=== PATIENT | male | born 1970 | race African-American/Black ===

== ENCOUNTER 2018-01-02 11:13 | Inpatient (IN) | payer OTHER ==
[2018-01-02 12:56] VITALS: BMI 25.9
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
[2018-01-02] MEDS ORDERED: P-EPHED 60MG/TRIPROLIDI 2.5MG TABLET PO PRN (13:03)
[2018-01-02] MEDS ORDERED: MENTHOL/PHENOL 1 EACH UD MM PRN (13:03)
[2018-01-02] MEDS ORDERED: chlordiazePOXIDE HCL 25 MG CAPSULE PO PRN (13:03)
[2018-01-02] MEDS ORDERED: MAGNESIUM CITRATE 300 ML BOTTLE PO PRN (13:03)
[2018-01-02] MEDS ORDERED: MAG HYDROX/AL HYDROX/SIMETH 30 ML UNIT-DOSE CUP PO PRN (13:03)
[2018-01-02] MEDS ORDERED: MAGNESIUM HYDROX 2400MG/30ML ORAL SUSPENSION 30 ML CUP PO PRN (13:03)
[2018-01-02] MEDS ORDERED: guaiFENesin/D-METHORPHAN HB 10 ML UNIT-DOSE CUPS PO PRN (13:03)
[2018-01-02] MEDS ORDERED: ACETAMINOPHEN 325 MG TABLET (FP) PO PRN (13:03)
[2018-01-02] MEDS ORDERED: IBUPROFEN 400 MG TABLET (FP) PO PRN (13:03)
[2018-01-02] MEDS: chlordiazePOXIDE HCL 25 MG CAPSULE PO SCH ×2 (16:17→22:07)
[2018-01-02 18:22] LABS: URINE APPEARANCE CLEAR; URINE BILIRUBIN NEGATIVE (<2.0 mg/dL); URINE COLOR COLORLESS; URINE GLUCOSE (UA) NEGATIVE (NEGATIVE); URINE KETONE NEGATIVE (NEGATIVE); URINE LEUK ESTERASE NEGATIVE (NEGATIVE); URINE NITRITE NEGATIVE (NEGATIVE); URINE PROTEIN NEGATIVE (NEGATIVE); URINE UROBILINOGEN NEGATIVE mg/dL (0.2-1.0)
[2018-01-02] MEDS: THIAMINE HCL 100 MG TABLET (FP) PO SCH (22:07)
[2018-01-02] MEDS: MELATONIN 5 MG TABLETS PO PRN (22:07)
[2018-01-03] MEDS: chlordiazePOXIDE HCL 25 MG CAPSULE PO SCH ×4 (06:56→22:06)
[2018-01-03] MEDS: PRENATAL VITAMINS W/ FOLIC ACID TABLET (FP) PO SCH (10:09)
[2018-01-03 10:57] LABS: HEMATOCRIT 39.8 % (35.4-49); HEMOGLOBIN 12.7 GM/dL (11.7-16.9); MCH 28.9 pg (25.7-33.7); MCHC 32.1 g/dl (32.0-35.9); MEAN CELL VOLUME 90.3 fl (80-96); MEAN PLT VOLUME 9.1 fl (7.5-11.1); PLATELET COUNT 349 K/MM3 (134-434); RBC 4.41 M/mm3 (4.00-5.60); RDW 12.6 % (11.9-15.9); WHITE BLOOD COUNT 4.1 K/mm3 (4.0-10.0)
--- NOTE | 2018-01-03 10:58 | PN ---
S CIWA - CIWA Score Nausea/Vomitin-No Nausea/No Vomiting Muscle Tremors: None Anxiety: 4-Mod. Anxious/Guarded Agitation: 5 Paroxysmal Sweats: 1-Minimal Palms Moist Orientation: 0-Oriented Tacttile Disturbances: 0-None Auditory Disturbances: 0-None Visual Disturbances: 0-None Headache: 0-None Present CIWA-Ar Total Score: 10 BHS Progress Note (SOAP) Subjective: PATIENT C/O ANXIETY, RESTLESSNESS AND IRRITABILITY. Objective: 01/03/18 10:56 Vital Signs Temperature 97 F L 01/03/18 09:36 Pulse Rate 81 01/03/18 09:36 Respiratory Rate 18 01/03/18 09:36 Blood Pressure 117/73 01/03/18 09:36 O2 Sat by Pulse Oximetry (%) Laboratory Tests 01/02/18 17:55 Urine Color Colorless Urine Appearance Clear Urine pH 7.0 Ur Specific [place] 1.004 L Urine Protein Negative Urine Glucose (UA) Negative Urine Ketones Negative Urine Blood Negative Urine Nitrite Negative Urine Bilirubin Negative Urine Urobilinogen Negative Ur Leukocyte Esterase Negative SKIN WARM AND MOISTURE OF HANDS CAR S1S2 RESP CTA BL EXT FULL ROM ALERT AND ORIENTED X 3 IRRITABLE AND PACING IN HALLWAY Assessment: 01/03/18 10:57 WITHDRAWAL SYNDROME Plan: CONTINUE DETOX ENCOURAGE ORAL FLUIDS CONTINUE TO MONITOR CLINICALLY
[2018-01-03 11:15] LABS: ALK PHOS 100 U/L (45-117); ANION GAP 10 MMOL/L (8-16); BILIRUBIN,TOTAL 0.3 mg/dL (0.2-1); BLOOD UREA NITROGEN 9 mg/dL (7-18); CALCIUM 9.1 mg/dL (8.5-10.1); CHLORIDE 106 mmol/L (98-107); CO2 25 mmol/L (21-32); CREATININE 0.9 mg/dL (0.55-1.3); GLUCOSE,RANDOM 88 mg/dL (74-106); POTASSIUM 4.5 mmol/L (3.5-5.1); SGOT/AST 24 U/L (15-37); SGPT/ALT 21 U/L (13-61); SODIUM 141 mmol/L (136-145); TOT PROT 7.7 g/dl (6.4-8.2)
--- NOTE | 2018-01-03 18:00 | PN ---
BHS Progress Note Note: Vistaril ordered prn for pt's increasing anxiety
[2018-01-03] MEDS: hydrOXYzine PAMOATE 25 MG CAPSULE (FP) PO PRN (18:22)
[2018-01-03] MEDS: MELATONIN 5 MG TABLETS PO PRN (22:06)
[2018-01-03] MEDS: THIAMINE HCL 100 MG TABLET (FP) PO SCH (22:06)
[2018-01-04] MEDS: chlordiazePOXIDE HCL 25 MG CAPSULE PO SCH ×2 (05:41→10:19)
[2018-01-04] MEDS: PRENATAL VITAMINS W/ FOLIC ACID TABLET (FP) PO SCH (10:19)
[2018-01-04] MEDS: hydrOXYzine PAMOATE 25 MG CAPSULE (FP) PO PRN ×2 (11:05→17:36)
--- NOTE | 2018-01-04 12:37 | PN ---
[facility] CIWA - CIWA Score Nausea/Vomitin-Mild Nausea/No Vomiting Muscle Tremors: 3 Anxiety: 3 Agitation: 3 Paroxysmal Sweats: 3 Orientation: 0-Oriented Tacttile Disturbances: 0-None Auditory Disturbances: 0-None Visual Disturbances: 0-None Headache: 1-Very Mild CIWA-Ar Total Score: 14 [facility] Progress Note (SOAP) Subjective: Tremor, agitation, restless, anxious Objective: 01/04/18 12:35 Last Vital Signs Temp Pulse Resp BP Pulse Ox 96.4 F L 82 18 122/71 01/04/18 09:22 01/04/18 09:22 01/04/18 09:22 01/04/18 09:22 Laboratory Tests 01/02/18 01/03/18 01/03/18 17:55 05:40 05:40 WBC 4.1 RBC 4.41 Hgb 12.7 Hct 39.8 MCV 90.3 MCH 28.9 MCHC 32.1 RDW 12.6 Plt Count 349 MPV 9.1 Sodium 141 Potassium 4.5 Chloride 106 Carbon Dioxide 25 Anion Gap 10 BUN 9 Creatinine 0.9 Creat Clearance w eGFR > 60 Random Glucose 88 Calcium 9.1 Total Bilirubin 0.3 AST 24 ALT 21 Alkaline Phosphatase 100 Total Protein 7.7 Albumin 4.0 Urine Color Colorless Urine Appearance Clear Urine pH 7.0 Ur Specific [place] 1.004 L Urine Protein Negative Urine Glucose (UA) Negative Urine Ketones Negative Urine Blood Negative Urine Nitrite Negative Urine Bilirubin Negative Urine Urobilinogen Negative Ur Leukocyte Esterase Negative RPR Titer 01/03/18 05:40 WBC RBC Hgb Hct MCV MCH MCHC RDW Plt Count MPV Sodium Potassium Chloride Carbon Dioxide Anion Gap BUN Creatinine Creat Clearance w eGFR Random Glucose Calcium Total Bilirubin AST ALT Alkaline Phosphatase Total Protein Albumin Urine Color Urine Appearance Urine pH Ur Specific [place] Urine Protein Urine Glucose (UA) Urine Ketones Urine Blood Urine Nitrite Urine Bilirubin Urine Urobilinogen Ur Leukocyte Esterase RPR Titer Nonreactive Labs reviewed Assessment: 01/04/18 12:36 Withdrawal symptoms Plan: Continue detox Encouraged PO water intake
[2018-01-04] MEDS: chlordiazePOXIDE 5 MG CAPSULE PO SCH ×2 (17:33→22:06)
[2018-01-04] MEDS: THIAMINE HCL 100 MG TABLET (FP) PO SCH (22:06)
[2018-01-04] MEDS: MELATONIN 5 MG TABLETS PO PRN (22:07)
[2018-01-05] MEDS: chlordiazePOXIDE 5 MG CAPSULE PO SCH ×2 (05:31→10:17)
[2018-01-05] MEDS: hydrOXYzine PAMOATE 25 MG CAPSULE (FP) PO PRN (08:47)
--- NOTE | 2018-01-05 10:15 | PN ---
BHS Progress Note (SOAP) Subjective: Shakes Anxious Objective: 01/05/18 10:13 A & O x 3 skin flushed Sitting calmly in bed No distress noted Vital Signs Temperature 99.3 F 01/05/18 09:56 Pulse Rate 93 H 01/05/18 09:56 Respiratory Rate 18 01/05/18 09:56 Blood Pressure 105/71 01/05/18 09:56 O2 Sat by Pulse Oximetry (%) Assessment: 01/05/18 10:13 Withdrawal sx Plan: Continue detox continue hydration
[2018-01-05] MEDS: PRENATAL VITAMINS W/ FOLIC ACID TABLET (FP) PO SCH (10:17)
[2018-01-05] MEDS: chlordiazePOXIDE HCL 10 MG CAPSULE PO SCH ×2 (17:21→22:05)
[2018-01-05] MEDS: MELATONIN 5 MG TABLETS PO PRN (22:05)
[2018-01-05] MEDS: THIAMINE HCL 100 MG TABLET (FP) PO SCH (22:05)
[2018-01-06] MEDS: chlordiazePOXIDE HCL 10 MG CAPSULE PO SCH ×2 (05:09→10:27)
[2018-01-06 09:21] VITALS: BP 131/86; PULSE 97; TEMP 99
[2018-01-06] MEDS: PRENATAL VITAMINS W/ FOLIC ACID TABLET (FP) PO SCH (10:27)
--- NOTE | 2018-01-06 10:50 | DS ---
[facility] Detox Discharge Summary Admission Date: 01/02/18 Discharge Date: 01/06/18 - History Present History: Alcohol Dependence - Physical Exam Results Vital Signs: Vital Signs Temperature 99.0 F 01/06/18 09:20 Pulse Rate 97 H 01/06/18 09:20 Respiratory Rate 18 01/06/18 09:20 Blood Pressure 131/86 01/06/18 09:20 O2 Sat by Pulse Oximetry (%) Pertinent Admission Physical Exam Findings: PATIENT TOLERATED DETOX REGIMEN WITHOUT ADVERSE EFFECTS. PATIENT MEDICALLY STABLE. DENIES SI/HI. IN NAD. ALERT AND ORIENTED X 3. SKIN WARM AND DRY. AMB AD MADHAV. EXT FULL ROM. PATIENT ACCEPTED REHAB REFERRAL TO [facility]. PATIENT ENCOURAGED TO COMPLETE REHAB TO PREVENT RELAPSE. D/C INSTRUCTIONS PROVIDED TO PATIENT BY STAFF. - Treatment Hospital Course: Detox Protocol Followed, Detoxed Safely, Responded well, Discharged Condition Good, Rehab Referral Accepted Patient has Accepted a Rehab Referral to: [facility] - Medication Discharge Medications: Ambulatory Orders NK [No Known Home Medication] 05/18/14 - Diagnosis (1) Withdrawal syndrome Current Visit: Yes Status: Resolved - AMA Did Patient Leave Against Medical Advice: No
== END 2018-01-06 12:57 | disposition other institution (70) | DRG 774 ==
LOC: YASAS 11:13 → Y3N 14:23
PROC: HZ2ZZZZ Detoxification Services for Substance Abuse Treatment (ICD-10-PCS; principal; 2018-01-02)
DX: F10.230 Alcohol dependence with withdrawal, uncomplicated (principal); F14.10 Cocaine abuse, uncomplicated; F17.210 Nicotine dependence, cigarettes, uncomplicated; R00.0 Tachycardia, unspecified; Z86.69 Personal history of other diseases of the nervous system and sense organs
CPT/HCPCS: 36415; 80053; 81003; 85027; 86593

== ENCOUNTER 2018-01-06 13:01 | Inpatient (IN) | payer OTHER ==
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
[2018-01-06] MEDS ORDERED: MAGNESIUM CITRATE 300 ML BOTTLE PO PRN (15:32)
[2018-01-06] MEDS ORDERED: guaiFENesin/D-METHORPHAN HB 10 ML UNIT-DOSE CUPS PO PRN (15:32)
[2018-01-06] MEDS ORDERED: IBUPROFEN 400 MG TABLET (FP) PO PRN (15:32)
[2018-01-06] MEDS ORDERED: NICOTINE POLACRILEX 2 MG GUM BUC PRN (15:32)
[2018-01-06] MEDS ORDERED: MAG HYDROX/AL HYDROX/SIMETH 30 ML UNIT-DOSE CUP PO PRN (15:32)
[2018-01-06] MEDS ORDERED: LOPERAMIDE HCL 2 MG CAPSULE PO PRN (15:32)
[2018-01-06] MEDS ORDERED: MAGNESIUM HYDROX 2400MG/30ML ORAL SUSPENSION 30 ML CUP PO PRN (15:32)
[2018-01-06] MEDS ORDERED: P-EPHED 60MG/TRIPROLIDI 2.5MG TABLET PO PRN (15:32)
[2018-01-06] MEDS ORDERED: MENTHOL/PHENOL 1 EACH UD MM PRN (15:32)
--- NOTE | 2018-01-06 15:32 | HP ---
[facility] Rehab Assess/Revision - Admission History [facility] Date of Admission to Rehab: 01/06/18 - Findings Detox History & Physical reviewed: Yes Concur with findings: Yes Inpatient Rehab Admission - Initial Determination Are CD services needed?: Yes Free of communicable disease: Yes Not in need of hospitalization: Yes - Rehab Admission Criteria Patient is meeting Inpatient Rehab admission criteria:: Yes
[2018-01-06] MEDS: MELATONIN 5 MG TABLETS PO PRN (21:25)
[2018-01-06] MEDS: THIAMINE HCL 100 MG TABLET (FP) PO SCH (21:25)
[2018-01-07] MEDS: PRENATAL VITAMINS W/ FOLIC ACID TABLET (FP) PO SCH (10:16)
[2018-01-07] MEDS: NICOTINE 14 MG/24 HOURS TOPICAL PATCH TD SCH (10:16)
[2018-01-07] MEDS: ACETAMINOPHEN 325 MG TABLET (FP) PO PRN (14:49)
[2018-01-07] MEDS: THIAMINE HCL 100 MG TABLET (FP) PO SCH (21:36)
[2018-01-07] MEDS: MELATONIN 5 MG TABLETS PO PRN (21:37)
[2018-01-08] MEDS: PRENATAL VITAMINS W/ FOLIC ACID TABLET (FP) PO SCH (10:04)
[2018-01-08] MEDS: NICOTINE 14 MG/24 HOURS TOPICAL PATCH TD SCH (10:04)
[2018-01-08] MEDS: ACETAMINOPHEN 325 MG TABLET (FP) PO PRN (21:37)
[2018-01-08] MEDS: THIAMINE HCL 100 MG TABLET (FP) PO SCH (21:37)
[2018-01-08] MEDS: MELATONIN 5 MG TABLETS PO PRN (21:37)
--- NOTE | 2018-01-09 06:49 | PN ---
Psychiatric Progress Note Vital Signs: Vital Signs Period Temp Pulse Resp BP Sys/Herrera Pulse Ox Last 24 Hr 98.1 F 77 18-18 117/87 Date of Session: 01/09/18 Chief Complaint:: Discharge Note HPI: Patient addressing Alcohol Dependence, Cocaine Abuse comorbid with Nicotine Dependence ROS: Alcohol related Seizure, H/O Anemia Current Medications: Active Medications Generic Name Dose Route Start Last Admin Trade Name Freq PRN Reason Stop Dose Admin Acetaminophen 650 mg 01/06/18 15:32 01/08/18 21:37 Tylenol - PO 650 mg Q4H PRN Administration FEVER Al Hydroxide/Mg Hydroxide 30 ml 01/06/18 15:32 Mylanta Oral Suspension - PO Q6H PRN DYSPEPSIA Eucalyptus/Menthol/Phenol/Sorbitol 1 each 01/06/18 15:32 Cepastat Lozenge - MM Q4H PRN SORE THROAT Guaifenesin 10 ml 01/06/18 15:32 Robitussin Dm - PO Q6H PRN COUGH Ibuprofen 400 mg 01/06/18 15:32 01/08/18 10:03 Motrin - PO 400 mg Q6H PRN Administration Pain Level 4-6 Loperamide HCl 4 mg 01/06/18 15:32 Imodium - PO Q6H PRN DIARRHEA Magnesium Citrate 300 ml 01/06/18 15:32 Citroma - PO Q48H PRN CONSTIPATION Magnesium Hydroxide 30 ml 01/06/18 15:32 Milk Of Magnesia - PO DAILY PRN CONSTIPATION Melatonin 5 mg 01/06/18 22:00 01/08/18 21:37 Melatonin PO 5 mg HS PRN Administration INSOMNIA Nicotine 14 mg 01/07/18 10:00 01/08/18 10:04 Nicoderm Patch - TD Not Given DAILY MARYA Nicotine Polacrilex 2 mg 01/06/18 15:32 Nicorette Gum - BUC Q2H PRN NICOTINE REPLACEMENT RX Multivit/Folic Acid/Iron 1 tab 01/07/18 10:00 01/08/18 10:04 Vitamins (Sjr) - PO 1 tab DAILY MARYA Administration Pseudoephedrine/Triprolidine 1 combo 01/06/18 15:32 Actifed - PO TID PRN NASAL CONGESTION Thiamine HCl 100 mg 01/06/18 22:00 01/08/18 21:37 Vitamin B1 - PO 100 mg HS MARYA Administration Current Side Effect: No Lab tests ordered: Yes Lab tests reviewed: Yes Provider note:: Patient has complete this program today. He has met his treatment goals and will continue to address his issues in half-way residential treatment at [facility]. Told life underwriter that from his participation in this program, he has learned to identify his triggers and better addressed them. He is stable for discharge today Total face to face time:: 35 Mental Status Exam - Mental Status Exam Alert and Oriented to: Time, Place, Person Cognitive Function: Fair Patient Appearance: Well Groomed Mood: Hopeful, Euthymic Affect: Appropriate Patient Behavior: Cooperative Speech Pattern: Clear Voice Loudness: Normal, Limited Variation Thought Process: Goal Oriented Thought Disorder: Not Present Hallucinations: Denies Suicidal Ideation: Denies Homicidal Ideation: Denies Insight/Judgement: Fair Sleep: Fair Appetite: Good Muscle strength/Tone: Normal Gait/Station: Normal Psychiatric Treatment Plan - Problem List (1) Alcohol dependence Current Visit: No Comment: . (2) Cocaine use disorder, mild, abuse Current Visit: No (3) Nicotine dependence Current Visit: No Comment: . (4) Alcohol related seizure Current Visit: No (5) History of anemia Current Visit: Yes Initial treatment plan: Patient is discharged today and referred to [facility] for half-way residential treatment
[2018-01-09 06:51] VITALS: BP 121/77; PULSE 89; TEMP 97.9
== END 2018-01-09 08:38 | disposition home or self-care (01) | DRG 772 ==
LOC: YASAS 13:01 → Y3W 13:02
PROVIDERS: ADMIT Psychiatry & Neurology Psychiatry; ATTEND Psychiatry & Neurology Psychiatry
PROC: HZ42ZZZ Group Counseling for Substance Abuse Treatment, Cognitive-Behavioral (ICD-10-PCS; principal; 2018-01-06)
DX: F10.20 Alcohol dependence, uncomplicated (principal); F14.10 Cocaine abuse, uncomplicated; F17.210 Nicotine dependence, cigarettes, uncomplicated; R56.9 Unspecified convulsions; Z86.69 Personal history of other diseases of the nervous system and sense organs; Z86.2 Personal history of diseases of the blood and blood-forming organs and certain disorders involving the immune mechanism

== ENCOUNTER 2018-07-03 14:33 | Inpatient (IN) | payer OTHER ==
[2018-07-03 18:01] VITALS: BMI 25.1
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
[2018-07-03] MEDS ORDERED: ACETAMINOPHEN 325 MG TABLET (FP) PO PRN ×2 (20:27)
[2018-07-03] MEDS ORDERED: MAGNESIUM CITRATE 300 ML BOTTLE PO PRN (20:27)
[2018-07-03] MEDS ORDERED: MAG HYDROX/AL HYDROX/SIMETH 30 ML UNIT-DOSE CUP PO PRN (20:27)
[2018-07-03] MEDS ORDERED: IBUPROFEN 400 MG TABLET (FP) PO PRN (20:27)
[2018-07-03] MEDS ORDERED: MAGNESIUM HYDROX 2400MG/30ML ORAL SUSPENSION 30 ML CUP PO PRN (20:27)
[2018-07-03] MEDS ORDERED: chlordiazePOXIDE HCL 10 MG CAPSULE PO PRN (20:27)
[2018-07-03] MEDS ORDERED: MENTHOL/PHENOL 1 EACH UD MM PRN (20:27)
[2018-07-03] MEDS ORDERED: hydrOXYzine PAMOATE 50 MG CAPSULE (FP) PO PRN (20:27)
[2018-07-03] MEDS ORDERED: METHOCARBAMOL 500 MG TABLET PO PRN (20:27)
[2018-07-03] MEDS ORDERED: chlordiazePOXIDE HCL 25 MG CAPSULE PO ONE (21:00)
[2018-07-03] MEDS: THIAMINE HCL 100 MG TABLET (FP) PO SCH (21:24)
[2018-07-03] MEDS: MELATONIN 5 MG TABLETS PO PRN (21:25)
[2018-07-03] MEDS: chlordiazePOXIDE HCL 25 MG CAPSULE PO SCH (21:27)
[2018-07-04] MEDS: chlordiazePOXIDE HCL 25 MG CAPSULE PO SCH ×2 (05:27→13:08)
[2018-07-04] MEDS ORDERED: NAPROXEN 500 MG TABLET (FP) PO SCH (10:00)
[2018-07-04] MEDS: PRENATAL VITAMINS W/ FOLIC ACID TABLET (FP) PO SCH (10:04)
[2018-07-04 10:14] LABS: HEMATOCRIT 39.6 % (35.4-49); HEMOGLOBIN 13.1 GM/dL (11.7-16.9); MCH 29.6 pg (25.7-33.7); MCHC 33.2 g/dl (32.0-35.9); MEAN CELL VOLUME 89.2 fl (80-96); MEAN PLT VOLUME 8.2 fl (7.5-11.1); PLATELET COUNT 294 K/MM3 (134-434); RBC 4.44 M/mm3 (4.00-5.60); RDW 12.6 % (11.9-15.9); WHITE BLOOD COUNT 2.9 K/mm3 (4.0-10.0)
[2018-07-04 10:22] LABS: ALBUMIN 3.8 g/dl (3.4-5.0); ALK PHOS 118 U/L (45-117); ANION GAP 7 MMOL/L (8-16); BILIRUBIN,TOTAL 0.5 mg/dL (0.2-1); BLOOD UREA NITROGEN 7 mg/dL (7-18); CALCIUM 9.2 mg/dL (8.5-10.1); CHLORIDE 103 mmol/L (98-107); CO2 28 mmol/L (21-32); CREATININE 0.9 mg/dL (0.55-1.3); GLUCOSE,RANDOM 95 mg/dL (74-106); POTASSIUM 3.9 mmol/L (3.5-5.1); SGOT/AST 39 U/L (15-37); SGPT/ALT 32 U/L (13-61); SODIUM 138 mmol/L (136-145); TOT PROT 7.5 g/dl (6.4-8.2)
[2018-07-04] MEDS: BISMUTH SUBSALICYLATE 524 MG/30 ML UD PO PRN ×2 (13:09→17:12)
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
--- NOTE | 2018-07-04 14:28 | EKG ---
Test Reason : Blood Pressure : / mmHG Vent. Rate : 080 BPM Atrial Rate : 080 BPM P-R Int : 162 ms QRS Dur : 094 ms QT Int : 390 ms P-R-T Axes : 076 061 067 degrees QTc Int : 449 ms NORMAL SINUS RHYTHM NORMAL ECG NO PREVIOUS ECGS AVAILABLE Confirmed by MD RAUL, JOE ([id number]) on 07/04/2018 2:28:24 PM Referred By: Confirmed By:JOE CARTER MD
[2018-07-04] MEDS ORDERED: ONDANSETRON *ODT* 4 MG TABLET SL PRN (14:43)
--- NOTE | 2018-07-04 17:26 | PN ---
[facility] CIWA - CIWA Score Nausea/Vomitin-No Nausea/No Vomiting Muscle Tremors: 3 Anxiety: 2 Agitation: 0-Normal Activity Paroxysmal Sweats: 3 Orientation: 0-Oriented Tacttile Disturbances: 2-Mild Itch/Numbness/Burn Auditory Disturbances: 2-Mild Harshness/Frighten Visual Disturbances: 0-None Headache: 0-None Present CIWA-Ar Total Score: 12 S Progress Note (SOAP) Subjective: Sweating, Tremors, Interrupted Sleep. Objective: PATIENT A & O X 3, OBSERVED AMBULATING ON UNIT UNASSISTED. IN NO ACUTE DISTRESS. 07/04/18 17:26 Vital Signs Temperature 98.1 F 07/04/18 13:26 Pulse Rate 78 07/04/18 13:26 Respiratory Rate 18 07/04/18 13:26 Blood Pressure 143/87 07/04/18 13:26 O2 Sat by Pulse Oximetry (%) Laboratory Tests 07/04/18 07/04/18 07:48 07:48 WBC 2.9 L RBC 4.44 Hgb 13.1 Hct 39.6 MCV 89.2 MCH 29.6 MCHC 33.2 RDW 12.6 Plt Count 294 MPV 8.2 Sodium 138 Potassium 3.9 Chloride 103 Carbon Dioxide 28 Anion Gap 7 L BUN 7 Creatinine 0.9 Creat Clearance w eGFR 90.06 Random Glucose 95 Calcium 9.2 Total Bilirubin 0.5 AST 39 H ALT 32 Alkaline Phosphatase 118 H Total Protein 7.5 Albumin 3.8 LABS NOTED. PATIENT HAS HAD LOW WBC LEVELS ON PREVIOUS ADMISSIONS. RPR RESULT PENDING. 07/04/18 17:27 Assessment: 07/04/18 17:27 WITHDRAWAL SYMPTOMS. LEUKOPENIA. Plan: CONTINUE DETOX. PATIENT DENIES KNOWN HISTORY OF HTN - CONTINUE TO MONITOR BP.
[2018-07-04] MEDS: chlordiazePOXIDE 5 MG CAPSULE PO SCH (22:37)
[2018-07-04] MEDS: THIAMINE HCL 100 MG TABLET (FP) PO SCH (22:37)
[2018-07-04] MEDS: MELATONIN 5 MG TABLETS PO PRN (22:38)
[2018-07-05] MEDS: chlordiazePOXIDE 5 MG CAPSULE PO SCH ×2 (06:00→13:03)
[2018-07-05] MEDS: PRENATAL VITAMINS W/ FOLIC ACID TABLET (FP) PO SCH (10:21)
[2018-07-05] MEDS: BISMUTH SUBSALICYLATE 524 MG/30 ML UD PO PRN ×2 (10:22→12:11)
--- NOTE | 2018-07-05 12:09 | PN ---
[facility] CIWA - CIWA Score Nausea/Vomitin-Mild Nausea/No Vomiting Muscle Tremors: 1-None Visible, but [place]ady Anxiety: 2 Agitation: 1-Slight > Activity Paroxysmal Sweats: 1-Minimal Palms Moist Orientation: 1-Uncertain about Date Tacttile Disturbances: 1-Very Mild Itch/Numbness Auditory Disturbances: 0-None Visual Disturbances: 0-None Headache: 1-Very Mild CIWA-Ar Total Score: 9 S Progress Note (SOAP) Subjective: feeling better social with peers in day room Objective: 07/05/18 12:11 Vital Signs Temperature 98.2 F 07/05/18 09:23 Pulse Rate 86 07/05/18 09:23 Respiratory Rate 18 07/05/18 09:23 Blood Pressure 119/76 07/05/18 09:23 O2 Sat by Pulse Oximetry (%) Laboratory Last Values WBC 2.9 K/mm3 (4.0-10.0) L 07/04/18 07:48 RBC 4.44 M/mm3 (4.00-5.60) 07/04/18 07:48 Hgb 13.1 GM/dL (11.7-16.9) 07/04/18 07:48 Hct 39.6 % (35.4-49) 07/04/18 07:48 MCV 89.2 fl (80-96) 07/04/18 07:48 MCH 29.6 pg (25.7-33.7) 07/04/18 07:48 MCHC 33.2 g/dl (32.0-35.9) 07/04/18 07:48 RDW 12.6 % (11.9-15.9) 07/04/18 07:48 Plt Count 294 K/MM3 (134-434) 07/04/18 07:48 MPV 8.2 fl (7.5-11.1) 07/04/18 07:48 Sodium 138 mmol/L (136-145) 07/04/18 07:48 Potassium 3.9 mmol/L (3.5-5.1) 07/04/18 07:48 Chloride 103 mmol/L (98-107) 07/04/18 07:48 Carbon Dioxide 28 mmol/L (21-32) 07/04/18 07:48 Anion Gap 7 MMOL/L (8-16) L 07/04/18 07:48 BUN 7 mg/dL (7-18) 07/04/18 07:48 Creatinine 0.9 mg/dL (0.55-1.3) 07/04/18 07:48 Creat Clearance w eGFR 90.06 (>60) 07/04/18 07:48 Random Glucose 95 mg/dL (74-106) 07/04/18 07:48 Calcium 9.2 mg/dL (8.5-10.1) 07/04/18 07:48 Total Bilirubin 0.5 mg/dL (0.2-1) 07/04/18 07:48 AST 39 U/L (15-37) H 07/04/18 07:48 ALT 32 U/L (13-61) 07/04/18 07:48 Alkaline Phosphatase 118 U/L (45-117) H 07/04/18 07:48 Total Protein 7.5 g/dl (6.4-8.2) 07/04/18 07:48 Albumin 3.8 g/dl (3.4-5.0) 07/04/18 07:48 RPR Titer Nonreactive (NONREACTIVE) 07/04/18 07:48 07/05/18 12:13 lab noted chronic low wbc strong recommend the patient to follow up with primary care provider 07/05/18 12:14 07/05/18 12:15 Assessment: 07/05/18 12:16 mild withdrawal sx Plan: continue detox
[2018-07-05] MEDS ORDERED: chlordiazePOXIDE HCL 10 MG CAPSULE PO PRN (21:00)
[2018-07-05] MEDS: chlordiazePOXIDE HCL 10 MG CAPSULE PO SCH (22:16)
[2018-07-05] MEDS: THIAMINE HCL 100 MG TABLET (FP) PO SCH (22:17)
[2018-07-05] MEDS: MELATONIN 5 MG TABLETS PO PRN (22:17)
[2018-07-06] MEDS: chlordiazePOXIDE HCL 10 MG CAPSULE PO SCH (05:01)
[2018-07-06 09:44] VITALS: BP 105/76; PULSE 99; TEMP 97.4
[2018-07-06] MEDS: PRENATAL VITAMINS W/ FOLIC ACID TABLET (FP) PO SCH (10:19)
--- NOTE | 2018-07-06 13:57 | DS ---
[facility] Detox Discharge Summary Admission Date: 07/03/18 Discharge Date: 07/06/18 - History Present History: Alcohol Dependence, Cocaine Dependence Additional Comments: PATIENT GOING TO [facility] ([place] FOR AFTERCARE. PATIENT WAS DISCHARGED FROM DETOX UNIT TO BE TAKEN OVER TO REHAB UNIT IN STABLE MEDICAL CONDITION. Pertinent Past History: History Of Seizures (Related To Alcohol Withdrawal), Nicotine Dependence. - Physical Exam Results Vital Signs: Vital Signs Temperature 97.4 F L 07/06/18 09:43 Pulse Rate 99 H 07/06/18 09:43 Respiratory Rate 18 07/06/18 09:43 Blood Pressure 105/76 07/06/18 09:43 O2 Sat by Pulse Oximetry (%) Pertinent Admission Physical Exam Findings: WITHDRAWAL SYMPTOMS. Laboratory Tests 07/04/18 07/04/18 07/04/18 07:48 07:48 07:48 WBC 2.9 L RBC 4.44 Hgb 13.1 Hct 39.6 MCV 89.2 MCH 29.6 MCHC 33.2 RDW 12.6 Plt Count 294 MPV 8.2 Sodium 138 Potassium 3.9 Chloride 103 Carbon Dioxide 28 Anion Gap 7 L BUN 7 Creatinine 0.9 Creat Clearance w eGFR 90.06 Random Glucose 95 Calcium 9.2 Total Bilirubin 0.5 AST 39 H ALT 32 Alkaline Phosphatase 118 H Total Protein 7.5 Albumin 3.8 Cement RPR Titer Nonreactive 07/04/18 07:48 WBC RBC Hgb Hct MCV MCH MCHC RDW Plt Count MPV Sodium Potassium Chloride Carbon Dioxide Anion Gap BUN Creatinine Creat Clearance w eGFR Random Glucose Calcium Total Bilirubin AST ALT Alkaline Phosphatase Total Protein Albumin Cement 0.2 RPR Titer LABS NOTED. - Treatment Hospital Course: Detox Protocol Followed, Detoxed Safely, Responded well, Discharged Condition Good, Rehab Referral Accepted Patient has Accepted a Rehab Referral to: [facility] ([place], [place]). - Medication Discharge Medications: Ambulatory Orders C[place] Carbonate [Eskalith -] 300 mg PO BID 07/03/18 Naproxen [Naprosyn] 500 mg PO DAILY 07/03/18 - Diagnosis (1) Uncomplicated alcohol dependence Status: Acute (2) Alcohol related seizure Status: Chronic (3) Cocaine use disorder, mild, abuse Status: Chronic (4) Nicotine dependence Status: Chronic (5) Substance induced mood disorder Status: Chronic - AMA Did Patient Leave Against Medical Advice: No
== END 2018-07-06 13:32 | disposition other institution (70) | DRG 774 ==
LOC: YASAS 14:33 → Y3N 20:49
PROVIDERS: ADMIT Surgery; ATTEND Surgery
PROC: HZ2ZZZZ Detoxification Services for Substance Abuse Treatment (ICD-10-PCS; principal; 2018-07-03)
DX: F10.230 Alcohol dependence with withdrawal, uncomplicated (principal); F14.10 Cocaine abuse, uncomplicated; F17.213 Nicotine dependence, cigarettes, with withdrawal; F19.24 Other psychoactive substance dependence with psychoactive substance-induced mood disorder; D72.819 Decreased white blood cell count, unspecified; Z86.69 Personal history of other diseases of the nervous system and sense organs; Z87.828 Personal history of other (healed) physical injury and trauma
CPT/HCPCS: 36415; 80053; 80178; 85027; 86593; 93005; 93010; Q0162

== ENCOUNTER 2018-07-06 13:32 | Inpatient (IN) | payer OTHER ==
--- NOTE | 2018-07-06 14:01 | HP ---
[facility] Rehab Assess/Revision - Admission History Admitted to Rehab from: [facility] Date of Admission to Rehab: 07/06/2018 - Vital signs Vital Signs: NOTED; STABLE. - Findings Detox History & Physical reviewed: Yes Concur with findings: Yes Comments/Additional Findings: PATIENT'S MEDICAL / MEDICATION HISTORY REVIEWED PRIOR TO DISCHARGE FROM DETOX UNIT. PATIENT WAS DISCHARGED FROM DETOX UNIT TO BE TAKEN OVER TO REHAB UNIT IN STABLE MEDICAL CONDITION. Inpatient Rehab Admission - Rehab Decision to Admit Inpatient rehab admission?: Yes - Initial Determination Are CD services needed?: Yes Free of communicable disease: Yes Not in need of hospitalization: Yes - Rehab Admission Criteria Previous failed treatment: Yes Poor recovery environment: Yes Comorbidities: No Lacks judgement: No Patient is meeting Inpatient Rehab admission criteria:: Yes
[2018-07-06] MEDS ORDERED: ACETAMINOPHEN 325 MG TABLET (FP) PO PRN (14:02)
[2018-07-06] MEDS ORDERED: MAG HYDROX/AL HYDROX/SIMETH 30 ML UNIT-DOSE CUP PO PRN (14:02)
[2018-07-06] MEDS ORDERED: MAGNESIUM CITRATE 300 ML BOTTLE PO PRN (14:02)
[2018-07-06] MEDS ORDERED: LOPERAMIDE HCL 2 MG CAPSULE PO PRN (14:02)
[2018-07-06] MEDS ORDERED: guaiFENesin 200 MG/10 ML 10 ML UNIT-DOSE CUPS PO PRN (14:02)
[2018-07-06] MEDS ORDERED: P-EPHED 60MG/TRIPROLIDI 2.5MG TABLET PO PRN (14:02)
[2018-07-06] MEDS ORDERED: MAGNESIUM HYDROX 2400MG/30ML ORAL SUSPENSION 30 ML CUP PO PRN (14:02)
[2018-07-06] MEDS ORDERED: ONDANSETRON *ODT* 4 MG TABLET SL PRN (18:52)
--- NOTE | 2018-07-06 18:54 | PN ---
S Progress Note Note: Vital Signs Temperature 98.9 F 07/06/18 18:06 Pulse Rate 85 07/06/18 18:06 Respiratory Rate 16 07/06/18 18:06 Blood Pressure 99/69 07/06/18 18:06 O2 Sat by Pulse Oximetry (%) c/o of nausea and vomiting zofran PRN fluids as tolerated continue to monitor
[2018-07-06] MEDS: THIAMINE HCL 100 MG TABLET (FP) PO SCH (21:49)
[2018-07-06] MEDS: MELATONIN 5 MG TABLETS PO PRN (21:50)
[2018-07-07] MEDS: NAPROXEN 500 MG TABLET (FP) PO SCH (10:56)
[2018-07-07] MEDS: PRENATAL VITAMINS W/ FOLIC ACID TABLET (FP) PO SCH (10:56)
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
[2018-07-07] MEDS: THIAMINE HCL 100 MG TABLET (FP) PO SCH (21:38)
[2018-07-07] MEDS: MELATONIN 5 MG TABLETS PO PRN (21:39)
[2018-07-08] MEDS: NAPROXEN 500 MG TABLET (FP) PO SCH (09:51)
[2018-07-08] MEDS: PRENATAL VITAMINS W/ FOLIC ACID TABLET (FP) PO SCH (09:51)
[2018-07-08] MEDS: ESCITALOPRAM OXALATE 20 MG TABLET (FP) PO SCH (15:28)
[2018-07-08] MEDS ORDERED: ONDANSETRON *ODT* 4 MG TABLET SL PRN (18:54)
[2018-07-08] MEDS: LITHIUM CARBONATE 300 MG CAPSULE (FP) PO SCH (21:34)
[2018-07-08] MEDS: GABAPENTIN 300 MG CAPSULE (FP) PO SCH (21:34)
[2018-07-08] MEDS: THIAMINE HCL 100 MG TABLET (FP) PO SCH (21:34)
[2018-07-08] MEDS: QUEtiapine FUMARATE 200 MG TABLET PO SCH (21:34)
[2018-07-09] MEDS: PRENATAL VITAMINS W/ FOLIC ACID TABLET (FP) PO SCH (10:49)
[2018-07-09] MEDS: GABAPENTIN 300 MG CAPSULE (FP) PO SCH ×2 (10:49→21:36)
[2018-07-09] MEDS: LITHIUM CARBONATE 300 MG CAPSULE (FP) PO SCH ×2 (10:49→21:36)
[2018-07-09] MEDS: NAPROXEN 500 MG TABLET (FP) PO SCH (10:49)
[2018-07-09] MEDS: ESCITALOPRAM OXALATE 20 MG TABLET (FP) PO SCH (10:49)
[2018-07-09] MEDS: QUEtiapine FUMARATE 200 MG TABLET PO SCH (21:36)
[2018-07-09] MEDS: THIAMINE HCL 100 MG TABLET (FP) PO SCH (21:36)
[2018-07-10] MEDS: NAPROXEN 500 MG TABLET (FP) PO SCH (09:59)
[2018-07-10] MEDS: LITHIUM CARBONATE 300 MG CAPSULE (FP) PO SCH ×2 (09:59→21:39)
[2018-07-10] MEDS: PRENATAL VITAMINS W/ FOLIC ACID TABLET (FP) PO SCH (09:59)
[2018-07-10] MEDS: GABAPENTIN 300 MG CAPSULE (FP) PO SCH ×2 (09:59→21:39)
[2018-07-10] MEDS: ESCITALOPRAM OXALATE 20 MG TABLET (FP) PO SCH (09:59)
[2018-07-10] MEDS: MELATONIN 5 MG TABLETS PO PRN (21:39)
[2018-07-10] MEDS: QUEtiapine FUMARATE 200 MG TABLET PO SCH (21:39)
[2018-07-10] MEDS: THIAMINE HCL 100 MG TABLET (FP) PO SCH (21:39)
[2018-07-11] MEDS: LITHIUM CARBONATE 300 MG CAPSULE (FP) PO SCH ×2 (10:17→21:37)
[2018-07-11] MEDS: ESCITALOPRAM OXALATE 20 MG TABLET (FP) PO SCH (10:17)
[2018-07-11] MEDS: NAPROXEN 500 MG TABLET (FP) PO SCH (10:17)
[2018-07-11] MEDS: PRENATAL VITAMINS W/ FOLIC ACID TABLET (FP) PO SCH (10:17)
[2018-07-11] MEDS: GABAPENTIN 300 MG CAPSULE (FP) PO SCH ×2 (10:17→21:37)
[2018-07-11] MEDS: QUEtiapine FUMARATE 200 MG TABLET PO SCH (21:37)
[2018-07-11] MEDS: THIAMINE HCL 100 MG TABLET (FP) PO SCH (21:37)
[2018-07-11] MEDS: MELATONIN 5 MG TABLETS PO PRN (21:38)
[2018-07-12] MEDS: NAPROXEN 500 MG TABLET (FP) PO SCH (10:13)
[2018-07-12] MEDS: ESCITALOPRAM OXALATE 20 MG TABLET (FP) PO SCH (10:14)
[2018-07-12] MEDS: PRENATAL VITAMINS W/ FOLIC ACID TABLET (FP) PO SCH (10:14)
[2018-07-12] MEDS: LITHIUM CARBONATE 300 MG CAPSULE (FP) PO SCH ×2 (10:14→21:35)
[2018-07-12] MEDS: GABAPENTIN 300 MG CAPSULE (FP) PO SCH ×2 (10:14→21:35)
[2018-07-12] MEDS: MENTHOL/PHENOL 1 EACH UD MM PRN ×2 (16:04→22:44)
[2018-07-12] MEDS: THIAMINE HCL 100 MG TABLET (FP) PO SCH (21:35)
[2018-07-12] MEDS: QUEtiapine FUMARATE 200 MG TABLET PO SCH (21:35)
[2018-07-12] MEDS: MELATONIN 5 MG TABLETS PO PRN (21:35)
[2018-07-13] MEDS: LITHIUM CARBONATE 300 MG CAPSULE (FP) PO SCH ×2 (10:15→21:54)
[2018-07-13] MEDS: ESCITALOPRAM OXALATE 20 MG TABLET (FP) PO SCH (10:15)
[2018-07-13] MEDS: NAPROXEN 500 MG TABLET (FP) PO SCH (10:15)
[2018-07-13] MEDS: PRENATAL VITAMINS W/ FOLIC ACID TABLET (FP) PO SCH (10:15)
[2018-07-13] MEDS: GABAPENTIN 300 MG CAPSULE (FP) PO SCH ×2 (10:15→21:54)
[2018-07-13] MEDS ORDERED: TRIMETHOBENZAMIDE HCL 200MG/2ML INJ IM PRN (20:06)
[2018-07-13] MEDS: THIAMINE HCL 100 MG TABLET (FP) PO SCH (21:54)
[2018-07-13] MEDS: QUEtiapine FUMARATE 200 MG TABLET PO SCH (21:54)
[2018-07-13] MEDS: MELATONIN 5 MG TABLETS PO PRN (21:55)
[2018-07-14] MEDS: LITHIUM CARBONATE 300 MG CAPSULE (FP) PO SCH ×2 (10:17→22:00)
[2018-07-14] MEDS: PRENATAL VITAMINS W/ FOLIC ACID TABLET (FP) PO SCH (10:17)
[2018-07-14] MEDS: GABAPENTIN 300 MG CAPSULE (FP) PO SCH ×2 (10:17→22:01)
[2018-07-14] MEDS: ESCITALOPRAM OXALATE 20 MG TABLET (FP) PO SCH (10:17)
[2018-07-14] MEDS: NAPROXEN 500 MG TABLET (FP) PO SCH (10:17)
[2018-07-14] MEDS ORDERED: ONDANSETRON *ODT* 4 MG TABLET SL PRN (18:23)
--- NOTE | 2018-07-14 18:28 | PN ---
[facility] Progress Note Note: PT HAS ORDER FOR TIGAN 200 MG I.M PRN. NURSE EDY Correia CALLED TO INFORM THAT PT IS REQUESTING FOR A PO ANTI-NAUSEA MEDICATION. Vital Signs - 24 hr 07/14/18 07/14/18 07/14/18 00:30 03:30 06:58 Temperature 97.9 F Pulse Rate 74 Respiratory 18 18 18 Rate Blood Pressure 126/80 WILL D/C TIGAN ZOFRAN 8MG Q8H SL PRN DIRECTED.FOR NAUSEA/VOMITING
[2018-07-14] MEDS: QUEtiapine FUMARATE 200 MG TABLET PO SCH (22:01)
[2018-07-14] MEDS: THIAMINE HCL 100 MG TABLET (FP) PO SCH (22:01)
[2018-07-14] MEDS: MELATONIN 5 MG TABLETS PO PRN (22:01)
[2018-07-15] MEDS: PRENATAL VITAMINS W/ FOLIC ACID TABLET (FP) PO SCH (10:09)
[2018-07-15] MEDS: LITHIUM CARBONATE 300 MG CAPSULE (FP) PO SCH ×2 (10:09→21:40)
[2018-07-15] MEDS: GABAPENTIN 300 MG CAPSULE (FP) PO SCH ×2 (10:09→21:40)
[2018-07-15] MEDS: NAPROXEN 500 MG TABLET (FP) PO SCH (10:09)
[2018-07-15] MEDS: ESCITALOPRAM OXALATE 20 MG TABLET (FP) PO SCH (10:09)
[2018-07-15] MEDS: MELATONIN 5 MG TABLETS PO PRN (21:40)
[2018-07-15] MEDS: QUEtiapine FUMARATE 200 MG TABLET PO SCH (21:40)
[2018-07-15] MEDS: THIAMINE HCL 100 MG TABLET (FP) PO SCH (21:40)
[2018-07-16] MEDS: PRENATAL VITAMINS W/ FOLIC ACID TABLET (FP) PO SCH (10:39)
[2018-07-16] MEDS: NAPROXEN 500 MG TABLET (FP) PO SCH (10:40)
[2018-07-16] MEDS: ESCITALOPRAM OXALATE 20 MG TABLET (FP) PO SCH (10:40)
[2018-07-16] MEDS: LITHIUM CARBONATE 300 MG CAPSULE (FP) PO SCH ×2 (10:40→21:22)
[2018-07-16] MEDS: GABAPENTIN 300 MG CAPSULE (FP) PO SCH ×2 (10:40→21:22)
--- NOTE | 2018-07-16 15:04 | PN ---
[facility] Progress Note Note: Patient is scheduled for discharge tomorrow. Scripts for 30 days supply of medications(Lexapro 20 mg/day, Seroquel 200mg/hs, [place] 300 mg/bid, Gabapentin 300 mg/bid) will be electronically transmitted to [facility] at [address] [place] [address]
[2018-07-16] MEDS: QUEtiapine FUMARATE 200 MG TABLET PO SCH (21:22)
[2018-07-16] MEDS: THIAMINE HCL 100 MG TABLET (FP) PO SCH (21:22)
[2018-07-16] MEDS: MELATONIN 5 MG TABLETS PO PRN (21:23)
[2018-07-17 06:46] VITALS: BP 115/73; PULSE 71; TEMP 98.4
--- NOTE | 2018-07-17 09:14 | PN ---
[facility] Progress Note Note: PT COMPLETED REHAB AND DISCHARGED TODAY. PT WAS SEEN BY HIS COUNSELOR LAUREN GAMEZ AND REFERRED TO S:[facility] [place] [place] [facility] ON [address] [facility], [place], [place]. PT REPORTS HE UTILIZES PR[facility] C[facility] BUT HAS NO CURRENT PMD. PT IS ALERT O X 3. DENIES S/H/I. Home Medications Medication Instructions Recorded Naproxen [Naprosyn] 500 mg PO DAILY 07/03/18 Escitalopram Oxalate [Lexapro -] 20 mg PO DAILY #30 tablet 07/16/18 Gabapentin [Neurontin -] 300 mg PO BID #60 capsule 07/16/18 [place] Carbonate [Eskalith -] 300 mg PO BID #60 capsule 07/16/18 Quetiapine Fumarate [Seroquel -] 200 mg PO HS #30 tablet 07/16/18 Laboratory Tests 07/15/18 08:05 [place] 0.5 L NAD MEDICALLY STABLE PLAN:FOLLOW UP WITH CD AFTERCARE RECOMMENDED. FOLLOW UP AT [facility] NEEDED.
[2018-07-17] MEDS: PRENATAL VITAMINS W/ FOLIC ACID TABLET (FP) PO SCH (10:27)
[2018-07-17] MEDS: LITHIUM CARBONATE 300 MG CAPSULE (FP) PO SCH (10:27)
[2018-07-17] MEDS: NAPROXEN 500 MG TABLET (FP) PO SCH (10:28)
[2018-07-17] MEDS: ESCITALOPRAM OXALATE 20 MG TABLET (FP) PO SCH (10:28)
[2018-07-17] MEDS: GABAPENTIN 300 MG CAPSULE (FP) PO SCH (10:28)
== END 2018-07-17 10:20 | disposition home or self-care (01) | DRG 772 ==
LOC: YASAS 13:32 → Y5N 13:33
PROVIDERS: ADMIT Neuromusculoskeletal Medicine & OMM; ATTEND Neuromusculoskeletal Medicine & OMM
PROC: HZ42ZZZ Group Counseling for Substance Abuse Treatment, Cognitive-Behavioral (ICD-10-PCS; principal; 2018-07-06)
DX: F10.20 Alcohol dependence, uncomplicated (principal); F14.20 Cocaine dependence, uncomplicated; F17.210 Nicotine dependence, cigarettes, uncomplicated; F19.24 Other psychoactive substance dependence with psychoactive substance-induced mood disorder; F19.282 Other psychoactive substance dependence with psychoactive substance-induced sleep disorder; F31.9 Bipolar disorder, unspecified; G40.509 Epileptic seizures related to external causes, not intractable, without status epilepticus; Z86.2 Personal history of diseases of the blood and blood-forming organs and certain disorders involving the immune mechanism
CPT/HCPCS: 36415; 80178; Q0162

== ENCOUNTER 2018-09-04 13:01 | Inpatient (IN) | payer OTHER ==
[2018-09-04 19:16] VITALS: BMI 26.9
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
[2018-09-04] MEDS ORDERED: METHOCARBAMOL 500 MG TABLET PO PRN (20:36)
[2018-09-04] MEDS ORDERED: chlordiazePOXIDE HCL 25 MG CAPSULE PO PRN (20:36)
[2018-09-04] MEDS ORDERED: MAG HYDROX/AL HYDROX/SIMETH 30 ML UNIT-DOSE CUP PO PRN (20:36)
[2018-09-04] MEDS ORDERED: NICOTINE POLACRILEX 2 MG GUM BUC PRN (20:36)
[2018-09-04] MEDS ORDERED: MAGNESIUM CITRATE 300 ML BOTTLE PO PRN (20:36)
[2018-09-04] MEDS ORDERED: hydrOXYzine PAMOATE 25 MG CAPSULE (FP) PO PRN (20:36)
[2018-09-04] MEDS ORDERED: MENTHOL/PHENOL 1 EACH UD MM PRN (20:36)
[2018-09-04] MEDS ORDERED: ACETAMINOPHEN 325 MG TABLET (FP) PO PRN ×2 (20:36)
[2018-09-04] MEDS ORDERED: BISMUTH SUBSALICYLATE 524 MG/30 ML UD PO PRN (20:36)
[2018-09-04] MEDS ORDERED: MAGNESIUM HYDROX 2400MG/30ML ORAL SUSPENSION 30 ML CUP PO PRN (20:36)
[2018-09-04] MEDS ORDERED: IBUPROFEN 400 MG TABLET (FP) PO PRN (20:36)
[2018-09-04] MEDS: MELATONIN 5 MG TABLETS PO PRN (22:12)
[2018-09-04] MEDS: chlordiazePOXIDE HCL 25 MG CAPSULE PO SCH ×3 (22:12→22:47)
[2018-09-04] MEDS: THIAMINE HCL 100 MG TABLET (FP) PO SCH (22:12)
[2018-09-04] MEDS: CLOTRIMAZOLE/BETAMET DIPROP 15 GM TUBE TP SCH (23:12)
[2018-09-05] MEDS: chlordiazePOXIDE HCL 25 MG CAPSULE PO SCH ×4 (06:25→22:19)
--- NOTE | 2018-09-05 09:50 | PN ---
S CIWA - CIWA Score Nausea/Vomitin-No Nausea/No Vomiting Muscle Tremors: 2 Anxiety: 2 Agitation: 1-Slight > Activity Paroxysmal Sweats: 3 Orientation: 0-Oriented Tacttile Disturbances: 1-Very Mild Itch/Numbness Auditory Disturbances: 0-None Visual Disturbances: 0-None Headache: 2-Mild CIWA-Ar Total Score: 11 [facility] Progress Note (SOAP) Subjective: c/o headache, sweats, and anxiety. Objective: 09/05/18 09:49 Vital Signs 09/05/18 09/05/18 09/05/18 03:48 06:24 09:43 Temperature 97 F L 98.5 F Pulse Rate 76 86 Respiratory 18 18 20 Rate Blood Pressure 106/62 122/67 Labs pending. Assessment: 09/05/18 09:49 AOX3, in no acute distress. Full rom, ambulates in the unit. withdrawal signs Plan: continue detox. increase fluids.
[2018-09-05] MEDS: PRENATAL VITAMINS W/ FOLIC ACID TABLET (FP) PO SCH (10:23)
[2018-09-05] MEDS: CLOTRIMAZOLE/BETAMET DIPROP 15 GM TUBE TP SCH ×2 (10:23→22:19)
[2018-09-05] MEDS: NICOTINE 14 MG/24 HOURS TOPICAL PATCH TD SCH (10:25)
[2018-09-05 10:35] LABS: HEMATOCRIT 36.7 % (35.4-49); HEMOGLOBIN 12.2 GM/dL (11.7-16.9); MCH 29.7 pg (25.7-33.7); MCHC 33.1 g/dl (32.0-35.9); MEAN CELL VOLUME 89.6 fl (80-96); MEAN PLT VOLUME 8.3 fl (7.5-11.1); PLATELET COUNT 304 K/MM3 (134-434); RBC 4.09 M/mm3 (4.00-5.60); RDW 11.9 % (11.9-15.9); WHITE BLOOD COUNT 3.6 K/mm3 (4.0-10.0)
[2018-09-05 10:49] LABS: ALBUMIN 3.3 g/dl (3.4-5.0); BILIRUBIN,TOTAL 0.4 mg/dL (0.2-1); BLOOD UREA NITROGEN 10.9 mg/dL (7-18); CALCIUM 8.8 mg/dL (8.5-10.1); CREATININE 0.9 mg/dL (0.55-1.3); POTASSIUM 4.3 mmol/L (3.5-5.1); TOT PROT 6.8 g/dl (6.4-8.2)
--- NOTE | 2018-09-05 12:35 | EKG ---
Test Reason : Blood Pressure : / mmHG Vent. Rate : 080 BPM Atrial Rate : 080 BPM P-R Int : 160 ms QRS Dur : 094 ms QT Int : 386 ms P-R-T Axes : 067 043 055 degrees QTc Int : 445 ms NORMAL SINUS RHYTHM NONSPECIFIC T WAVE ABNORMALITY ABNORMAL ECG WHEN COMPARED WITH ECG OF 04-SEP-2018 21:24, NONSPECIFIC T WAVE ABNORMALITY NOW EVIDENT IN ANTERIOR LEADS Confirmed by JUANITA PADILLA MD ([id number]) on 09/05/2018 12:35:09 PM Referred By: Confirmed By:JUANITA PADILLA MD
--- NOTE | 2018-09-05 12:36 | EKG ---
Test Reason : Blood Pressure : / mmHG Vent. Rate : 069 BPM Atrial Rate : 069 BPM P-R Int : 178 ms QRS Dur : 102 ms QT Int : 410 ms P-R-T Axes : 075 048 058 degrees QTc Int : 439 ms NORMAL SINUS RHYTHM WITH SINUS ARRHYTHMIA VOLTAGE CRITERIA FOR LEFT VENTRICULAR HYPERTROPHY ABNORMAL ECG WHEN COMPARED WITH ECG OF 03-JUL-2018 19:46, NO SIGNIFICANT CHANGE WAS FOUND Confirmed by JUANITA PADILLA MD ([id number]) on 09/05/2018 12:36:16 PM Referred By: Confirmed By:JUANITA PADILLA MD
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
[2018-09-05] MEDS: THIAMINE HCL 100 MG TABLET (FP) PO SCH (22:19)
[2018-09-05] MEDS: MELATONIN 5 MG TABLETS PO PRN (22:20)
[2018-09-06] MEDS ORDERED: chlordiazePOXIDE HCL 10 MG CAPSULE PO PRN (05:00)
[2018-09-06] MEDS: chlordiazePOXIDE HCL 10 MG CAPSULE PO SCH ×4 (05:57→22:00)
[2018-09-06] MEDS: PRENATAL VITAMINS W/ FOLIC ACID TABLET (FP) PO SCH (10:33)
[2018-09-06] MEDS: CLOTRIMAZOLE/BETAMET DIPROP 15 GM TUBE TP SCH ×2 (10:33→22:00)
[2018-09-06] MEDS: NICOTINE 14 MG/24 HOURS TOPICAL PATCH TD SCH (10:34)
--- NOTE | 2018-09-06 12:06 | PN ---
S CIWA - CIWA Score Nausea/Vomitin Muscle Tremors: 2 Anxiety: 2 Agitation: 1-Slight > Activity Paroxysmal Sweats: No Perspiration Orientation: 0-Oriented Tacttile Disturbances: 0-None Auditory Disturbances: 0-None Visual Disturbances: 1-Very Mild Sensitivity Headache: 2-Mild CIWA-Ar Total Score: 10 BHS Progress Note (SOAP) Subjective: HEADACHE, SHAKINESS, POOR SLEEP Objective: 09/06/18 12:04 Vital Signs - 24 hr 09/05/18 09/05/18 09/05/18 13:40 17:39 21:53 Temperature 97.4 F L 98.6 F 98.3 F Pulse Rate 87 79 71 Respiratory 18 17 18 Rate Blood Pressure 122/67 104/60 130/77 09/06/18 09/06/18 09/06/18 00:30 03:30 06:26 Temperature 98.4 F Pulse Rate 69 Respiratory 18 18 18 Rate Blood Pressure 114/65 09/06/18 09:17 Temperature 99.5 F Pulse Rate 77 Respiratory 18 Rate Blood Pressure 114/69 Laboratory Tests 09/05/18 09/05/18 09/05/18 08:00 08:00 08:00 WBC 3.6 L RBC 4.09 Hgb 12.2 Hct 36.7 MCV 89.6 MCH 29.7 MCHC 33.1 RDW 11.9 Plt Count 304 MPV 8.3 Sodium 137 Potassium 4.3 Chloride 105 Carbon Dioxide 25 Anion Gap 7 L BUN 10.9 Creatinine 0.9 Est GFR (CKD-EPI)AfAm 116.65 Est GFR (CKD-EPI)NonAf 100.64 Random Glucose 81 Calcium 8.8 Total Bilirubin 0.4 AST 31 ALT 32 Alkaline Phosphatase 131 H Total Protein 6.8 Albumin 3.3 L RPR Titer Nonreactive HIV 1&2 Antibody Screen HIV P24 Antigen 09/05/18 08:00 WBC RBC Hgb Hct MCV MCH MCHC RDW Plt Count MPV Sodium Potassium Chloride Carbon Dioxide Anion Gap BUN Creatinine Est GFR (CKD-EPI)AfAm Est GFR (CKD-EPI)NonAf Random Glucose Calcium Total Bilirubin AST ALT Alkaline Phosphatase Total Protein Albumin RPR Titer HIV 1&2 Antibody Screen Negative HIV P24 Antigen Negative Assessment: 09/06/18 12:05 Vital Signs - 24 hr 09/05/18 09/05/18 09/05/18 13:40 17:39 21:53 Temperature 97.4 F L 98.6 F 98.3 F Pulse Rate 87 79 71 Respiratory 18 17 18 Rate Blood Pressure 122/67 104/60 130/77 09/06/18 09/06/18 09/06/18 00:30 03:30 06:26 Temperature 98.4 F Pulse Rate 69 Respiratory 18 18 18 Rate Blood Pressure 114/65 09/06/18 09:17 Temperature 99.5 F Pulse Rate 77 Respiratory 18 Rate Blood Pressure 114/69 Laboratory Tests 09/05/18 09/05/18 09/05/18 08:00 08:00 08:00 WBC 3.6 L RBC 4.09 Hgb 12.2 Hct 36.7 MCV 89.6 MCH 29.7 MCHC 33.1 RDW 11.9 Plt Count 304 MPV 8.3 Sodium 137 Potassium 4.3 Chloride 105 Carbon Dioxide 25 Anion Gap 7 L BUN 10.9 Creatinine 0.9 Est GFR (CKD-EPI)AfAm 116.65 Est GFR (CKD-EPI)NonAf 100.64 Random Glucose 81 Calcium 8.8 Total Bilirubin 0.4 AST 31 ALT 32 Alkaline Phosphatase 131 H Total Protein 6.8 Albumin 3.3 L RPR Titer Nonreactive HIV 1&2 Antibody Screen HIV P24 Antigen 09/05/18 08:00 WBC RBC Hgb Hct MCV MCH MCHC RDW Plt Count MPV Sodium Potassium Chloride Carbon Dioxide Anion Gap BUN Creatinine Est GFR (CKD-EPI)AfAm Est GFR (CKD-EPI)NonAf Random Glucose Calcium Total Bilirubin AST ALT Alkaline Phosphatase Total Protein Albumin RPR Titer HIV 1&2 Antibody Screen Negative HIV P24 Antigen Negative ALERT ORINETED APROPRAITE 09/06/18 12:05 ACUTE WITHDRAWAL Plan: CONTINUE DETOX PROTOCOL
[2018-09-06] MEDS: MELATONIN 5 MG TABLETS PO PRN (22:00)
[2018-09-06] MEDS: THIAMINE HCL 100 MG TABLET (FP) PO SCH (22:00)
[2018-09-07] MEDS: chlordiazePOXIDE HCL 10 MG CAPSULE PO SCH ×2 (05:43→17:16)
[2018-09-07] MEDS: PRENATAL VITAMINS W/ FOLIC ACID TABLET (FP) PO SCH (10:46)
[2018-09-07] MEDS: CLOTRIMAZOLE/BETAMET DIPROP 15 GM TUBE TP SCH ×2 (10:46→22:13)
[2018-09-07] MEDS: ESCITALOPRAM OXALATE 20 MG TABLET (FP) PO SCH (10:48)
[2018-09-07] MEDS ORDERED: ESCITALOPRAM OXALATE 10 MG TABLET (FP) ONE (10:48)
[2018-09-07] MEDS: GABAPENTIN 300 MG CAPSULE (FP) PO SCH ×2 (10:48→22:12)
[2018-09-07] MEDS: NICOTINE 14 MG/24 HOURS TOPICAL PATCH TD SCH (10:49)
[2018-09-07] MEDS: LITHIUM CARBONATE 300 MG CAPSULE (FP) PO SCH ×2 (11:39→22:12)
--- NOTE | 2018-09-07 12:21 | PN ---
Psychiatric Progress Note Vital Signs: Vital Signs Period Temp Pulse Resp BP Sys/Herrera Pulse Ox Last 24 Hr 97.7 F-98.4 F 63-93 18-20 103-147/63-84 Date of Session: 09/07/18 Chief Complaint:: " I need my medications " HPI: Called to meet with this patient, already evaluated on 09/05/18, to discuss medications. It appears that Mr Segura has decided to get back on psychotropic medications (lithium, seroquel, gabapentin, lexapro). Hospital course is otherwise unremarkable. ROS: Unremarkable. Current Medications: Active Medications Generic Name Dose Route Start Last Admin Trade Name Freq PRN Reason Stop Dose Admin Acetaminophen 650 mg 09/04/18 20:36 Tylenol - PO Q6H PRN PAIN LEVEL 4 - 6 Acetaminophen 650 mg 09/04/18 20:36 Tylenol - PO Q6H PRN FEVER Al Hydroxide/Mg Hydroxide 30 ml 09/04/18 20:36 Mylanta Oral Suspension - PO Q6H PRN DYSPEPSIA Bismuth Subsalicylate 524 mg 09/04/18 20:36 Pepto-Bismol - PO Q1H PRN DIARRHEA Chlordiazepoxide HCl 10 mg 09/07/18 05:00 09/07/18 05:43 Librium - PO 09/08/18 05:01 10 mg Q12H MARYA Administration Clotrimazole 1 applic 09/04/18 22:00 09/07/18 10:46 Lotrisone Cream (Small Tube) TP 1 applic BID MARYA Administration Escitalopram Oxalate 20 mg 09/07/18 10:45 09/07/18 10:48 Lexapro - PO 20 mg DAILY MARYA Administration Eucalyptus/Menthol/Phenol/Sorbitol 1 each 09/04/18 20:36 Cepastat Lozenge - MM 09/10/18 20:36 Q4H PRN SORE THROAT Gabapentin 300 mg 09/07/18 10:45 09/07/18 10:48 Neurontin - PO 300 mg BID MARYA Administration Hydroxyzine Pamoate 25 mg 09/04/18 20:36 Vistaril - PO 09/10/18 20:36 Q6H PRN For Anxiety Ibuprofen 400 mg 09/04/18 20:36 Motrin - PO Q6H PRN PAIN LEVEL 1 - 3 [place]win Carbonate 300 mg 09/07/18 10:45 Eskalith - PO BID MARYA Magnesium Citrate 300 ml 09/04/18 20:36 Citroma - PO Q48H PRN CONSTIPATION Magnesium Hydroxide 30 ml 09/04/18 20:36 Milk Of Magnesia - PO PRN PRN CONSTIPATION Melatonin 5 mg 09/04/18 20:36 09/06/18 22:00 Melatonin PO 5 mg HS PRN Administration INSOMNIA Methocarbamol 500 mg 09/04/18 20:36 09/04/18 22:12 Robaxin - PO 09/10/18 20:36 500 mg Q6H PRN Administration MUSCLE SPASMS Nicotine 14 mg 09/05/18 10:00 09/07/18 10:49 Nicoderm Patch - TD Not Given DAILY MARYA Nicotine Polacrilex 2 mg 09/04/18 20:36 Nicorette Gum - BUC Q2H PRN NICOTINE REPLACEMENT RX Multivit/Folic Acid/Iron 1 tab 09/05/18 10:00 09/07/18 10:46 Vitamins (Sjr) - PO 1 tab DAILY MARYA Administration Quetiapine Fumarate 200 mg 09/07/18 22:00 Seroquel - PO HS MARYA Thiamine HCl 100 mg 09/04/18 22:00 09/06/18 22:00 Vitamin B1 - PO 100 mg HS MARYA Administration Medication(s) Change(s): Medications reviewed. Met with the patient. Mr Segura insisits on geting back on lithium carbonate 300 mg po bid + lexapro 20 mg po daily + gabapentin 300 po bid + seroquel 200 mg po hs. Ordered at patient' specific request. Side effects/benefits of each medication were discussed with the patient. Made aware, in particular, of the risk or renal dysfunction, hypothyroidism, alopecia, tremors, suicidal ideation, sexual dysfunction, oversedation, orthostasis and cardiovascular adverse events. Verbal consent granted to MD. Irwin level has been requested. Will follow. Current Side Effect: No Lab tests ordered: No Lab tests reviewed: Yes Provider note:: Chart reviewed. Patient seen in session. Treatment plan revisited and informed consent secured. Mr Segura is doing fine. He has approached staff for re-introduction of specific medications (lithium, seroquel , escitalopram, neurontin) in his current regime of treatment. Appears to be motivated. Visible, active and sociable on the unit. Stable mental status. Total face to face time:: 35 Mental Status Exam - Mental Status Exam Alert and Oriented to: Time, Place, Person Cognitive Function: Good Patient Appearance: Well Groomed Mood: Nervous (about being without his medications), Anxious, Hopeful Affect: Appropriate (.), Normal Range Patient Behavior: Appropriate, Cooperative Speech Pattern: Clear, Appropriate Voice Loudness: Normal Thought Process: Intact, Goal Oriented Thought Disorder: Not Present Hallucinations: Denies Suicidal Ideation: Denies Homicidal Ideation: Denies Insight/Judgement: Fair Sleep: Fair Appetite: Good Muscle strength/Tone: Normal Gait/Station: Normal Psychiatric Treatment Plan - Problem List (1) Alcohol dependence with uncomplicated withdrawal Current Visit: Yes Comment: . (2) Cannabis dependence Current Visit: Yes Comment: . (3) Cocaine dependence Current Visit: Yes Qualifiers: Substance use status: uncomplicated Qualified Code(s): F14.20 - Cocaine dependence, uncomplicated Comment: . (4) Nicotine dependence Current Visit: Yes Comment: . (5) Substance induced mood disorder Current Visit: Yes Comment: . (6) History of bipolar disorder Current Visit: Yes Comment: . (7) Insomnia Current Visit: Yes Comment: .
--- NOTE | 2018-09-07 14:48 | PN ---
[facility] CIWA - CIWA Score Nausea/Vomitin-No Nausea/No Vomiting Muscle Tremors: None Anxiety: 4-Mod. Anxious/Guarded Agitation: 3 Paroxysmal Sweats: 3 Orientation: 0-Oriented Tacttile Disturbances: 0-None Auditory Disturbances: 1-Very Mild Visual Disturbances: 0-None Headache: 0-None Present CIWA-Ar Total Score: 11 S Progress Note (SOAP) Subjective: Sweating, Anxious, Interrupted Sleep. Objective: PATIENT A & O X 3, OBSERVED AMBULATING ON UNIT UNASSISTED. IN NO ACUTE DISTRESS. 09/07/18 14:45 Vital Signs Temperature 96.8 F L 09/07/18 13:27 Pulse Rate 74 09/07/18 13:27 Respiratory Rate 18 09/07/18 13:27 Blood Pressure 120/75 09/07/18 13:27 O2 Sat by Pulse Oximetry (%) Laboratory Tests 09/05/18 09/05/18 09/05/18 08:00 08:00 08:00 WBC 3.6 L RBC 4.09 Hgb 12.2 Hct 36.7 MCV 89.6 MCH 29.7 MCHC 33.1 RDW 11.9 Plt Count 304 MPV 8.3 Sodium 137 Potassium 4.3 Chloride 105 Carbon Dioxide 25 Anion Gap 7 L BUN 10.9 Creatinine 0.9 Est GFR (CKD-EPI)AfAm 116.65 Est GFR (CKD-EPI)NonAf 100.64 Random Glucose 81 Calcium 8.8 Total Bilirubin 0.4 AST 31 ALT 32 Alkaline Phosphatase 131 H Total Protein 6.8 Albumin 3.3 L RPR Titer Nonreactive HIV 1&2 Antibody Screen HIV P24 Antigen 09/05/18 08:00 WBC RBC Hgb Hct MCV MCH MCHC RDW Plt Count MPV Sodium Potassium Chloride Carbon Dioxide Anion Gap BUN Creatinine Est GFR (CKD-EPI)AfAm Est GFR (CKD-EPI)NonAf Random Glucose Calcium Total Bilirubin AST ALT Alkaline Phosphatase Total Protein Albumin RPR Titer HIV 1&2 Antibody Screen Negative HIV P24 Antigen Negative LABS NOTED. PATIENT HAS HAD LOW WBC LEVEL ON PREVIOUS ADMISSIONS. 09/07/18 14:47 Assessment: 09/07/18 14:47 WITHDRAWAL SYMPTOMS. Plan: CONTINUE DETOX. PATIENT SCHEDULED FOR D/C TOMORROW AM.
[2018-09-07] MEDS ORDERED: QUEtiapine FUMARATE 200 MG TABLET PO SCH (22:00)
[2018-09-07] MEDS: THIAMINE HCL 100 MG TABLET (FP) PO SCH (22:12)
[2018-09-07] MEDS: MELATONIN 5 MG TABLETS PO PRN (22:13)
[2018-09-08] MEDS: chlordiazePOXIDE HCL 10 MG CAPSULE PO SCH (06:04)
[2018-09-08] MEDS ORDERED: ESCITALOPRAM OXALATE 10 MG TABLET (FP) ONE (09:03)
[2018-09-08 09:28] VITALS: BP 103/51; PULSE 76; TEMP 96.8
[2018-09-08] MEDS: GABAPENTIN 300 MG CAPSULE (FP) PO SCH (10:40)
[2018-09-08] MEDS: ESCITALOPRAM OXALATE 20 MG TABLET (FP) PO SCH (10:40)
[2018-09-08] MEDS: PRENATAL VITAMINS W/ FOLIC ACID TABLET (FP) PO SCH (10:40)
[2018-09-08] MEDS: NICOTINE 14 MG/24 HOURS TOPICAL PATCH TD SCH (10:41)
[2018-09-08] MEDS: LITHIUM CARBONATE 300 MG CAPSULE (FP) PO SCH (10:41)
[2018-09-08] MEDS: CLOTRIMAZOLE/BETAMET DIPROP 15 GM TUBE TP SCH (10:41)
--- NOTE | 2018-09-08 16:18 | DS ---
[facility] Detox Discharge Summary Admission Date: 09/04/18 Discharge Date: 09/08/18 - History Present History: Alcohol Dependence, Cannabis Dependence, Cocaine Dependence Additional Comments: PATIENT GOING TO [facility] ([facility]) FOR AFTERCARE. PATIENT WAS DISCHARGED FROM DETOX UNIT TO BE TAKEN OVER TO REHAB UNIT IN STABLE MEDICAL CONDITION. Pertinent Past History: Depression, History of Bipolar Disorder, History Of Seizures (Related to Alcohol Withdrawal), Anxiety, Nicotine Dependence. - Physical Exam Results Vital Signs: Vital Signs Temperature 96.8 F L 09/08/18 09:28 Pulse Rate 76 09/08/18 09:28 Respiratory Rate 18 09/08/18 09:28 Blood Pressure 103/51 L 09/08/18 09:28 O2 Sat by Pulse Oximetry (%) Pertinent Admission Physical Exam Findings: WITHDRAWAL SYMPTOMS. Laboratory Tests 09/05/18 09/05/18 09/05/18 08:00 08:00 08:00 WBC 3.6 L RBC 4.09 Hgb 12.2 Hct 36.7 MCV 89.6 MCH 29.7 MCHC 33.1 RDW 11.9 Plt Count 304 MPV 8.3 Sodium 137 Potassium 4.3 Chloride 105 Carbon Dioxide 25 Anion Gap 7 L BUN 10.9 Creatinine 0.9 Est GFR (CKD-EPI)AfAm 116.65 Est GFR (CKD-EPI)NonAf 100.64 Random Glucose 81 Calcium 8.8 Total Bilirubin 0.4 AST 31 ALT 32 Alkaline Phosphatase 131 H Total Protein 6.8 Albumin 3.3 L RPR Titer Nonreactive HIV 1&2 Antibody Screen HIV P24 Antigen 09/05/18 08:00 WBC RBC Hgb Hct MCV MCH MCHC RDW Plt Count MPV Sodium Potassium Chloride Carbon Dioxide Anion Gap BUN Creatinine Est GFR (CKD-EPI)AfAm Est GFR (CKD-EPI)NonAf Random Glucose Calcium Total Bilirubin AST ALT Alkaline Phosphatase Total Protein Albumin RPR Titer HIV 1&2 Antibody Screen Negative HIV P24 Antigen Negative LABS NOTED. - Treatment Hospital Course: Detox Protocol Followed, Detoxed Safely, Responded well, Discharged Condition Good, Rehab Referral Accepted Patient has Accepted a Rehab Referral to: [facility] ([place], [place]). - Medication Discharge Medications: Ambulatory Orders Naproxen [Naprosyn] 500 mg PO DAILY 07/03/18 Escitalopram Oxalate [Lexapro -] 20 mg PO DAILY #30 tablet 07/16/18 Gabapentin [Neurontin -] 300 mg PO BID #60 capsule 07/16/18 [place] Carbonate [Eskalith -] 300 mg PO BID #60 capsule 07/16/18 Quetiapine Fumarate [Seroquel -] 200 mg PO HS #30 tablet 07/16/18 - Diagnosis (1) Depression Current Visit: Yes Status: Chronic Qualifiers: Depression Type: unspecified Qualified Code(s): F32.9 - Major depressive disorder, single episode, unspecified (2) Alcohol dependence with uncomplicated withdrawal Current Visit: Yes Status: Acute (3) Anxiety Current Visit: Yes Status: Chronic (4) History of bipolar disorder Current Visit: Yes Status: Chronic (5) Nicotine dependence Current Visit: Yes Status: Chronic (6) Non-compliance Current Visit: Yes Status: Chronic (7) Alcohol related seizure Current Visit: No Status: Chronic (8) Cannabis dependence Current Visit: Yes Status: Chronic (9) Cocaine dependence Current Visit: Yes Status: Chronic Qualifiers: Substance use status: uncomplicated Qualified Code(s): F14.20 - Cocaine dependence, uncomplicated (10) Substance induced mood disorder Current Visit: Yes Status: Chronic - AMA Did Patient Leave Against Medical Advice: No
== END 2018-09-08 17:34 | disposition other institution (70) | DRG 774 ==
LOC: YASAS 13:01 → Y3N 21:08
PROVIDERS: ADMIT Surgery; ATTEND Surgery
PROC: HZ2ZZZZ Detoxification Services for Substance Abuse Treatment (ICD-10-PCS; principal; 2018-09-04)
DX: F10.230 Alcohol dependence with withdrawal, uncomplicated (principal); F14.20 Cocaine dependence, uncomplicated; F12.20 Cannabis dependence, uncomplicated; F17.210 Nicotine dependence, cigarettes, uncomplicated; F19.24 Other psychoactive substance dependence with psychoactive substance-induced mood disorder; F31.9 Bipolar disorder, unspecified; F32.9 Major depressive disorder, single episode, unspecified; F41.9 Anxiety disorder, unspecified; Z86.69 Personal history of other diseases of the nervous system and sense organs; Z91.19 Patient's noncompliance with other medical treatment and regimen
CPT/HCPCS: 36415; 80053; 80178; 85027; 86593; 87389; 93005; 93010

== ENCOUNTER 2018-09-08 18:01 | Inpatient (IN) | payer OTHER ==
--- NOTE | 2018-09-08 16:29 | HP ---
[facility] Re[facility] Assess/Revision - Admission History Admitted to Rehab from: [facility] Date of Admission to Rehab: 09/08/2018 - Vital signs Vital Signs: NOTED; STABLE. - Findings Detox History & Physical reviewed: Yes Concur with findings: Yes Comments/Additional Findings: PATIENT'S MEDICAL / MEDICATION HISTORY REVIEWED PRIOR TO DISCHARGE FROM DETOX UNIT. PATIENT WAS DISCHARGED FROM DETOX UNIT TO BE TAKEN OVER TO REHAB UNIT IN STABLE MEDICAL CONDITION. Inpatient Rehab Admission - Rehab Decision to Admit Inpatient rehab admission?: Yes - Initial Determination Are CD services needed?: Yes Free of communicable disease: Yes Not in need of hospitalization: Yes - Rehab Admission Criteria Previous failed treatment: Yes Poor recovery environment: Yes Comorbidities: Yes Lacks judgement: No Patient is meeting Inpatient Rehab admission criteria:: Yes
[~2018-09-08 18:01] MED LIST: ACETAMINOPHEN 325 MG TABLET (FP) PO PRN; LOPERAMIDE HCL 2 MG CAPSULE PO PRN; MAG HYDROX/AL HYDROX/SIMETH 30 ML UNIT-DOSE CUP PO PRN; MAGNESIUM CITRATE 300 ML BOTTLE PO PRN; MAGNESIUM HYDROX 2400MG/30ML ORAL SUSPENSION 30 ML CUP PO PRN; MENTHOL/PHENOL 1 EACH UD MM PRN; NICOTINE POLACRILEX 2 MG GUM BUC PRN; P-EPHED 60MG/TRIPROLIDI 2.5MG TABLET PO PRN; guaiFENesin 200 MG/10 ML 10 ML UNIT-DOSE CUPS PO PRN
[2018-09-08] MEDS: THIAMINE HCL 100 MG TABLET (FP) PO SCH (21:48)
[2018-09-08] MEDS: MELATONIN 5 MG TABLETS PO PRN (21:49)
[2018-09-08] MEDS ORDERED: QUEtiapine FUMARATE 200 MG TABLET PO ONE (22:15)
[2018-09-09] MEDS: PRENATAL VITAMINS W/ FOLIC ACID TABLET (FP) PO SCH (10:07)
[2018-09-09] MEDS: NICOTINE 14 MG/24 HOURS TOPICAL PATCH TD SCH (10:08)
[2018-09-09] MEDS: IBUPROFEN 400 MG TABLET (FP) PO PRN ×2 (12:28→20:13)
--- NOTE | 2018-09-09 12:50 | CONSULT ---
[facility] Psychiatric Consult - Data Date of interview: 09/09/18 Admission source: 3N Identifying data: Mr Segura is a 47 years old single Black male, father of a 28 years old son, unemployed with no source of income, homeless seeking rehab treatment for alcohol and cocaine Substance Abuse History: Reports history of alcohol, crack cocaine use. Refer to addiction counselor's summary for further information Medical History: Significant for athlete's foot, history of alcohol related seizure and sugeries for left chest/armpit and left lung(pneumothorax) in 2005. 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 He reports onset of mental illness at age 45 when he was diagnosed with Bipolar [facility]. Reports two psychiatric hospitalizations at [facility] and most recently in 2018 at [facility]. Reports poor adherence to outpatient psychiatric treatment. However reports receiving medications whenever admitted to detox/rehab. He received medications last in detox in this faciliy where he saw Dr Garza on 09/05/18 and prescribed Lexapro 20 mg/day, Brule 300 mg/bid, gabapetin 300 mg/bid and seroquel 200 mg/hs. No reported history of suicide attempt. At present, denies experiencing psychotic. manic symptoms, S/H ideations. However, Reports feeling depressed, anxious and sleeping poorly Physical/Sexual Abuse/Trauma History: Denies history of emotional, physical or sexual abuse as well as DV relationship. No service Additional Comment: Reports history of multiple previous arrrests including 3 felony convictions. Denies being on parole/probation at present Mental Status Exam - Mental Status Exam Alert and Oriented to: Time, Place, Person Cognitive Function: Fair Patient Appearance: Well Groomed Mood: Depressed, Anxious Affect: Appropriate Patient Behavior: Cooperative Speech Pattern: Clear Voice Loudness: Normal Thought Process: Intact Thought Disorder: Not Present Hallucinations: Denies Suicidal Ideation: Denies Homicidal Ideation: Denies Insight/Judgement: Fair Sleep: Poorly Appetite: Fair Muscle strength/Tone: Normal Gait/Station: Normal Psychiatric Findings - Problem List ([place] 1, 2,3) (1) Bipolar disorder Current Visit: No Status: Chronic (2) Substance induced mood disorder Current Visit: Yes Status: Acute (3) Substance-induced sleep disorder Current Visit: Yes Status: Acute (4) Alcohol dependence Current Visit: No Status: Acute Comment: . (5) Cocaine dependence Current Visit: No Status: Acute Qualifiers: Substance use status: uncomplicated Qualified Code(s): F14.20 - Cocaine dependence, uncomplicated Comment: . (6) Nicotine dependence Current Visit: No Status: Chronic Comment: . (7) Alcohol related seizure Current Visit: No Status: Chronic (8) Athlete's foot Current Visit: Yes Status: Chronic - Initial Treatment Plan Initial Treatment Plan: 1) Continue Lexapro 20 mg po daily, Brule 300 mg po BID, Gabapentin 300 mg po BID and Seroquel 200 mg po HS. 2) Brule serum level on 09/15/18. 3) Continue inpatient rehabilitation
[2018-09-09] MEDS: LITHIUM CARBONATE 300 MG CAPSULE (FP) PO SCH ×2 (13:19→21:38)
[2018-09-09] MEDS: GABAPENTIN 300 MG CAPSULE (FP) PO SCH ×2 (13:19→21:38)
[2018-09-09] MEDS: ESCITALOPRAM OXALATE 20 MG TABLET (FP) PO SCH (13:19)
[2018-09-09] MEDS: THIAMINE HCL 100 MG TABLET (FP) PO SCH (21:38)
[2018-09-09] MEDS: QUEtiapine FUMARATE 200 MG TABLET PO SCH (21:39)
[2018-09-09] MEDS: MELATONIN 5 MG TABLETS PO PRN (21:39)
[2018-09-10] MEDS: PRENATAL VITAMINS W/ FOLIC ACID TABLET (FP) PO SCH (10:12)
[2018-09-10] MEDS: GABAPENTIN 300 MG CAPSULE (FP) PO SCH ×2 (10:13→21:56)
[2018-09-10] MEDS: NICOTINE 14 MG/24 HOURS TOPICAL PATCH TD SCH (10:13)
[2018-09-10] MEDS: LITHIUM CARBONATE 300 MG CAPSULE (FP) PO SCH ×2 (10:13→21:57)
[2018-09-10] MEDS: ESCITALOPRAM OXALATE 20 MG TABLET (FP) PO SCH (10:13)
[2018-09-10] MEDS ORDERED: BACITRACIN 15 GM TUBE TOPICAL OINTMENT TP SCH (11:15)
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
[2018-09-10] MEDS: TOLNAFTATE 1% CREAM 15 GM TUBE TP SCH ×2 (12:42→21:59)
[2018-09-10] MEDS: BACITRACIN 15 GM TUBE TOPICAL OINTMENT TP SCH ×2 (12:42→21:58)
--- NOTE | 2018-09-10 14:36 | PN ---
[facility] Progress Note Note: Patient is scheduled for discharge tomorrow. Scripts for 30 days supply of medications(Lexapro 20 mg/day, Gabapentin 300 mg/bid, Cruger 300 mg/bid, Seroquel 200 mg/hs) will be electronically transmitted to [facility]
[2018-09-10] MEDS: QUEtiapine FUMARATE 200 MG TABLET PO SCH (21:56)
[2018-09-10] MEDS: MELATONIN 5 MG TABLETS PO PRN (21:57)
[2018-09-10] MEDS: THIAMINE HCL 100 MG TABLET (FP) PO SCH (21:57)
[2018-09-11 06:49] VITALS: BP 111/65; PULSE 84; TEMP 97.9
--- NOTE | 2018-09-11 09:09 | PN ---
S Progress Note (SOAP) Subjective: PT DECLINING TO CONTINUE WITH REHAB FOR PERSONAL REASONS. MET WITH HIS COUNSELOR , MARGOTVICTORINOMartine GAMEZ AND PT HAS BEEN REFERRED TO [facility] [place], [place]. PT REPORTS HE IS FOLLOWING UP FOR MENTAL HEALTH AT [facility] ON [address] [place] [address]. PT IS ALERT O X 3. DENIES S/H I. Objective: 09/11/18 09:07 Vital Signs - 24 hr 09/11/18 09/11/18 09/11/18 00:30 03:30 06:49 Temperature 97.9 F Pulse Rate 84 Respiratory 16 18 18 Rate Blood Pressure 111/65 Home Medications Medication Instructions Recorded Naproxen [Naprosyn] 500 mg PO DAILY 07/03/18 Escitalopram Oxalate [Lexapro -] 20 mg PO DAILY #30 tablet 09/10/18 Gabapentin [Neurontin -] 300 mg PO BID #60 capsule 09/10/18 [place] Carbonate [Eskalith -] 300 mg PO BID #60 capsule 09/10/18 Quetiapine Fumarate [Seroquel -] 200 mg PO HS #30 tablet 09/10/18 Assessment: 09/11/18 09:07 NAD Plan: PT SIGNED OUT AMA FOLLOW UP WITH CD AFTERCARE RECOMMENDATION. FOLLOW UP WITH PCP/ORTHOPEDIC WITHIN 1 WEEK AFTER LEAVING REHAB TO ADDRESS RIGHT SMALL FINGER CONCERNS. COPY OF XRAY OF FINGER GIVEN TO PATIENT FOR FOLLOW UP NECESSARY.
[2018-09-11] MEDS: BACITRACIN 15 GM TUBE TOPICAL OINTMENT TP SCH (09:20)
[2018-09-11] MEDS: LITHIUM CARBONATE 300 MG CAPSULE (FP) PO SCH (09:20)
[2018-09-11] MEDS: GABAPENTIN 300 MG CAPSULE (FP) PO SCH (09:20)
[2018-09-11] MEDS: ESCITALOPRAM OXALATE 20 MG TABLET (FP) PO SCH (09:20)
[2018-09-11] MEDS: PRENATAL VITAMINS W/ FOLIC ACID TABLET (FP) PO SCH (09:20)
[2018-09-11] MEDS: TOLNAFTATE 1% CREAM 15 GM TUBE TP SCH (09:21)
[2018-09-11] MEDS: NICOTINE 14 MG/24 HOURS TOPICAL PATCH TD SCH (09:21)
== END 2018-09-11 09:40 | disposition left against medical advice (07) | DRG 770 ==
LOC: YASAS 18:01 → Y5N 18:02
PROVIDERS: ADMIT Neuromusculoskeletal Medicine & OMM; ATTEND Neuromusculoskeletal Medicine & OMM
PROC: HZ42ZZZ Group Counseling for Substance Abuse Treatment, Cognitive-Behavioral (ICD-10-PCS; principal; 2018-09-08)
DX: F10.20 Alcohol dependence, uncomplicated (principal); F14.20 Cocaine dependence, uncomplicated; F17.210 Nicotine dependence, cigarettes, uncomplicated; F19.24 Other psychoactive substance dependence with psychoactive substance-induced mood disorder; F19.282 Other psychoactive substance dependence with psychoactive substance-induced sleep disorder; F31.9 Bipolar disorder, unspecified; B35.3 Tinea pedis; Z86.69 Personal history of other diseases of the nervous system and sense organs
CPT/HCPCS: 73130-TC-RT-FY

== ENCOUNTER 2020-09-06 22:28 | Inpatient (IN) | payer OTHER ==
[2020-09-07] MEDS ORDERED: IBUPROFEN 400 MG TABLET (FP) PO PRN
[2020-09-07] MEDS ORDERED: MAGNESIUM HYDROX 2400MG/30ML ORAL SUSPENSION 30 ML CUP PO PRN
[2020-09-07] MEDS ORDERED: MAGNESIUM CITRATE 300 ML BOTTLE PO PRN
[2020-09-07] MEDS ORDERED: METHOCARBAMOL 500 MG TABLET PO PRN
[2020-09-07] MEDS ORDERED: ONDANSETRON *ODT* 4 MG TABLET SL PRN
[2020-09-07] MEDS ORDERED: diazePAM 5 MG TABLET PO PRN
[2020-09-07] MEDS ORDERED: BISMUTH SUBSALICYLATE 524 MG/30 ML PO PRN
[2020-09-07] MEDS ORDERED: MAG HYDROX/AL HYDROX/SIMETH 30 ML UNIT-DOSE CUP PO PRN
[2020-09-07] MEDS ORDERED: ACETAMINOPHEN 325 MG TABLET (FP) PO PRN ×2
[2020-09-07] MEDS ORDERED: NICOTINE POLACRILEX 2 MG GUM BUC PRN
[2020-09-07] MEDS ORDERED: MENTHOL/PHENOL 1 EACH UD MM PRN
[2020-09-07 01:29] VITALS: BMI 25.1
[2020-09-07] MEDS: diazePAM 5 MG TABLET PO SCH ×4 (04:12→22:30)
[2020-09-07] MEDS: NICOTINE 14 MG/24 HOURS TOPICAL PATCH TD SCH (10:12)
[2020-09-07] MEDS: PRENATAL VITAMINS W/ FOLIC ACID TABLET (FP) PO SCH (10:12)
[2020-09-07 13:38] LABS: HEMATOCRIT 39.1 % (35.4-49); HEMOGLOBIN 12.9 GM/dL (11.7-16.9); MCH 29.3 pg (25.7-33.7); MCHC 32.9 g/dl (32.0-35.9); MEAN CELL VOLUME 88.9 fl (80-96); MEAN PLT VOLUME 8.7 fl (7.5-11.1); PLATELET COUNT 339 10^3/uL (134-434); RBC 4.39 M/mm3 (4.00-5.60); RDW 12.5 % (11.9-15.9)
[2020-09-07 13:59] LABS: CREATININE 0.9 mg/dL (0.55-1.3)
[2020-09-07 14:03] LABS: BILIRUBIN,TOTAL 0.4 mg/dL (0.2-1); TOT PROT 8.2 g/dl (6.4-8.2)
[2020-09-07 14:10] LABS: ALBUMIN 4.5 g/dl (3.4-5.0); CALCIUM 9.6 mg/dL (8.5-10.1)
[2020-09-07] MEDS: MELATONIN 5 MG TABLETS PO SCH (22:31)
[2020-09-07] MEDS: THIAMINE HCL 100 MG TABLET (FP) PO SCH (22:32)
[2020-09-08] MEDS: diazePAM 5 MG TABLET PO SCH ×3 (05:27→22:05)
[2020-09-08] MEDS: PRENATAL VITAMINS W/ FOLIC ACID TABLET (FP) PO SCH (10:22)
[2020-09-08] MEDS: NICOTINE 14 MG/24 HOURS TOPICAL PATCH TD SCH (10:22)
[2020-09-08] MEDS: THIAMINE HCL 100 MG TABLET (FP) PO SCH (22:06)
[2020-09-08] MEDS: QUEtiapine FUMARATE 100 MG TABLET (FP) PO SCH (22:06)
[2020-09-08] MEDS: MELATONIN 5 MG TABLETS PO SCH (22:06)
[2020-09-09] MEDS: diazePAM 5 MG TABLET PO SCH ×2 (05:15→18:15)
[2020-09-09] MEDS: NICOTINE 14 MG/24 HOURS TOPICAL PATCH TD SCH (10:36)
[2020-09-09] MEDS: PRENATAL VITAMINS W/ FOLIC ACID TABLET (FP) PO SCH (10:36)
[2020-09-09] MEDS: THIAMINE HCL 100 MG TABLET (FP) PO SCH (22:16)
[2020-09-09] MEDS: MELATONIN 5 MG TABLETS PO SCH (22:16)
[2020-09-09] MEDS: QUEtiapine FUMARATE 100 MG TABLET (FP) PO SCH (22:16)
[2020-09-10] MEDS ORDERED: diazePAM 5 MG TABLET PO ONE (06:00)
[2020-09-10 07:15] VITALS: BP 109/71; PULSE 77; TEMP 97.2
[2020-09-10] MEDS: NICOTINE 14 MG/24 HOURS TOPICAL PATCH TD SCH (10:08)
[2020-09-10] MEDS: PRENATAL VITAMINS W/ FOLIC ACID TABLET (FP) PO SCH (10:08)
== END 2020-09-10 10:00 | disposition home or self-care (01) | DRG 774 ==
LOC: YASAS 22:28 → Y6N 09-07 02:29
PROVIDERS: ADMIT Allergy & Immunology; ATTEND Allergy & Immunology
PROC: HZ2ZZZZ Detoxification Services for Substance Abuse Treatment (ICD-10-PCS; principal; 2020-09-07)
DX: F10.230 Alcohol dependence with withdrawal, uncomplicated (principal); F14.20 Cocaine dependence, uncomplicated; F12.20 Cannabis dependence, uncomplicated; F17.210 Nicotine dependence, cigarettes, uncomplicated; F19.282 Other psychoactive substance dependence with psychoactive substance-induced sleep disorder; F19.24 Other psychoactive substance dependence with psychoactive substance-induced mood disorder; F31.75 Bipolar disorder, in partial remission, most recent episode depressed; Z87.828 Personal history of other (healed) physical injury and trauma; Z86.69 Personal history of other diseases of the nervous system and sense organs; Z56.0 Unemployment, unspecified; Z59.0 Homelessness; Z91.011 Allergy to milk products
CPT/HCPCS: 36415; 80053; 85027; 86780; 93005; 93010; C9803; Q0162; U0003; U0005

== ENCOUNTER 2021-01-04 13:22 | Inpatient (IN) | payer OTHER ==
[2021-01-04] MEDS ORDERED: BISMUTH SUBSALICYLATE 524 MG/30 ML PO PRN (16:20)
[2021-01-04] MEDS ORDERED: MAGNESIUM CITRATE 300 ML BOTTLE PO PRN (16:20)
[2021-01-04] MEDS ORDERED: METHOCARBAMOL 500 MG TABLET PO PRN (16:20)
[2021-01-04] MEDS ORDERED: ONDANSETRON *ODT* 4 MG TABLET SL PRN (16:20)
[2021-01-04] MEDS ORDERED: NICOTINE 10 MG CARTRIDGE (INHALER) IH PRN (16:20)
[2021-01-04] MEDS ORDERED: ACETAMINOPHEN 325 MG TABLET (FP) PO PRN ×2 (16:20)
[2021-01-04] MEDS ORDERED: MAG HYDROX/AL HYDROX/SIMETH 30 ML UNIT-DOSE CUP PO PRN (16:20)
[2021-01-04] MEDS ORDERED: IBUPROFEN 400 MG TABLET (FP) PO PRN (16:20)
[2021-01-04] MEDS ORDERED: MENTHOL/PHENOL 1 EACH UD MM PRN (16:20)
[2021-01-04] MEDS ORDERED: MAGNESIUM HYDROX 2400MG/30ML ORAL SUSPENSION 30 ML CUP PO PRN (16:20)
[2021-01-04 17:48] VITALS: BMI 29.2
[2021-01-04] MEDS: hydrOXYzine PAMOATE 25 MG CAPSULE (FP) PO SCH ×2 (18:42→23:08)
[2021-01-04] MEDS ORDERED: THIAMINE HCL 100 MG TABLET (FP) PO SCH (22:00)
[2021-01-04] MEDS ORDERED: MELATONIN 5 MG TABLETS PO SCH (22:00)
[2021-01-05 05:55] VITALS: TEMP 97.4
[2021-01-05] MEDS: hydrOXYzine PAMOATE 25 MG CAPSULE (FP) PO SCH ×2 (05:55→10:06)
[2021-01-05 09:27] VITALS: BP 126/73; PULSE 89
[2021-01-05] MEDS ORDERED: PRENATAL VITAMINS W/ FOLIC ACID TABLET (FP) PO SCH (10:00)
[2021-01-05 11:46] LABS: HEMATOCRIT 38.7 % (35.4-49); HEMOGLOBIN 12.8 GM/dL (11.7-16.9); MCH 29.8 pg (25.7-33.7); MCHC 33.2 g/dl (32.0-35.9); MEAN CELL VOLUME 89.5 fl (80-96); MEAN PLT VOLUME 8.6 fl (7.5-11.1); PLATELET COUNT 407 10^3/uL (134-434); RBC 4.32 M/mm3 (4.00-5.60); RDW 12.8 % (11.9-15.9); WHITE BLOOD COUNT 4.2 K/mm3 (4.0-10.0)
[2021-01-05 11:51] LABS: CALCIUM 9.3 mg/dL (8.5-10.1)
[2021-01-05 11:52] LABS: ALBUMIN 3.7 g/dl (3.4-5.0); BLOOD UREA NITROGEN 14.8 mg/dL (7-18)
[2021-01-05 11:56] LABS: TOT PROT 7.9 g/dl (6.4-8.2)
[2021-01-05 11:58] LABS: BILIRUBIN,TOTAL 0.8 mg/dL (0.2-1)
== END 2021-01-05 12:52 | disposition other institution (70) | DRG 775 ==
LOC: YASAS 13:22 → Y6N 17:19 → UNDOADMIN 17:19
PROVIDERS: ADMIT Allergy & Immunology; ATTEND Allergy & Immunology
PROC: HZ2ZZZZ Detoxification Services for Substance Abuse Treatment (ICD-10-PCS; principal; 2021-01-04)
DX: F10.230 Alcohol dependence with withdrawal, uncomplicated (principal); F17.210 Nicotine dependence, cigarettes, uncomplicated; F31.75 Bipolar disorder, in partial remission, most recent episode depressed; Z91.011 Allergy to milk products
CPT/HCPCS: 36415; 80053; 85027; 86780; C9803; Q0162; U0003; U0005

== ENCOUNTER 2021-01-05 12:04 | Inpatient (IN) | payer OTHER ==
[2021-01-05] MEDS ORDERED: MAGNESIUM HYDROX 2400MG/30ML ORAL SUSPENSION 30 ML CUP PO PRN (14:58)
[2021-01-05] MEDS ORDERED: MAGNESIUM CITRATE 300 ML BOTTLE PO PRN (14:58)
[2021-01-05] MEDS ORDERED: MAG HYDROX/AL HYDROX/SIMETH 30 ML UNIT-DOSE CUP PO PRN (14:58)
[2021-01-05] MEDS ORDERED: MENTHOL/PHENOL 1 EACH UD MM PRN (14:58)
[2021-01-05] MEDS: hydrOXYzine PAMOATE 25 MG CAPSULE (FP) PO PRN ×2 (16:45→21:07)
[2021-01-05] MEDS: NICOTINE 10 MG CARTRIDGE (INHALER) IH PRN (19:09)
[2021-01-05] MEDS: THIAMINE HCL 100 MG TABLET (FP) PO SCH (21:07)
[2021-01-05] MEDS ORDERED: MELATONIN 5 MG TABLETS PO SCH (22:00)
[2021-01-06] MEDS: hydrOXYzine PAMOATE 25 MG CAPSULE (FP) PO PRN ×3 (08:57→21:24)
[2021-01-06] MEDS: PRENATAL VITAMINS W/ FOLIC ACID TABLET (FP) PO SCH (09:00)
[2021-01-06] MEDS: NICOTINE 10 MG CARTRIDGE (INHALER) IH PRN (14:57)
[2021-01-06] MEDS: QUEtiapine FUMARATE 100 MG TABLET (FP) PO SCH (21:23)
[2021-01-06] MEDS: THIAMINE HCL 100 MG TABLET (FP) PO SCH (21:23)
[2021-01-07] MEDS: hydrOXYzine PAMOATE 25 MG CAPSULE (FP) PO PRN ×3 (08:33→21:05)
[2021-01-07] MEDS: PRENATAL VITAMINS W/ FOLIC ACID TABLET (FP) PO SCH (09:25)
[2021-01-07] MEDS: IBUPROFEN 400 MG TABLET (FP) PO PRN (09:26)
[2021-01-07] MEDS: NICOTINE 10 MG CARTRIDGE (INHALER) IH PRN ×2 (13:36→19:37)
[2021-01-07] MEDS: THIAMINE HCL 100 MG TABLET (FP) PO SCH (21:05)
[2021-01-07] MEDS: QUEtiapine FUMARATE 100 MG TABLET (FP) PO SCH (21:05)
[2021-01-08] MEDS: hydrOXYzine PAMOATE 25 MG CAPSULE (FP) PO PRN ×3 (08:33→21:02)
[2021-01-08] MEDS: PRENATAL VITAMINS W/ FOLIC ACID TABLET (FP) PO SCH (10:09)
[2021-01-08] MEDS: IBUPROFEN 400 MG TABLET (FP) PO PRN (10:31)
[2021-01-08] MEDS: NICOTINE 10 MG CARTRIDGE (INHALER) IH PRN ×2 (12:31→22:04)
[2021-01-08] MEDS: QUEtiapine FUMARATE 100 MG TABLET (FP) PO SCH (21:02)
[2021-01-08] MEDS: THIAMINE HCL 100 MG TABLET (FP) PO SCH (21:02)
[2021-01-09] MEDS: PRENATAL VITAMINS W/ FOLIC ACID TABLET (FP) PO SCH (09:48)
[2021-01-09] MEDS: hydrOXYzine PAMOATE 25 MG CAPSULE (FP) PO PRN ×3 (09:49→21:07)
[2021-01-09] MEDS: NICOTINE 10 MG CARTRIDGE (INHALER) IH PRN ×2 (11:33→20:04)
[2021-01-09] MEDS: IBUPROFEN 400 MG TABLET (FP) PO PRN (14:31)
[2021-01-09] MEDS: QUEtiapine FUMARATE 100 MG TABLET (FP) PO SCH (21:07)
[2021-01-09] MEDS: THIAMINE HCL 100 MG TABLET (FP) PO SCH (21:07)
[2021-01-10] MEDS: NICOTINE 10 MG CARTRIDGE (INHALER) IH PRN ×2 (08:45→15:33)
[2021-01-10] MEDS: PRENATAL VITAMINS W/ FOLIC ACID TABLET (FP) PO SCH (09:34)
[2021-01-10] MEDS: hydrOXYzine PAMOATE 25 MG CAPSULE (FP) PO PRN ×2 (09:35→21:03)
[2021-01-10] MEDS: THIAMINE HCL 100 MG TABLET (FP) PO SCH (21:03)
[2021-01-10] MEDS: amLODIPine BESYLATE 5 MG TABLET (FP) PO SCH (21:03)
[2021-01-10] MEDS: QUEtiapine FUMARATE 100 MG TABLET (FP) PO SCH (21:03)
[2021-01-11] MEDS: NICOTINE 10 MG CARTRIDGE (INHALER) IH PRN ×2 (08:44→15:36)
[2021-01-11] MEDS: PRENATAL VITAMINS W/ FOLIC ACID TABLET (FP) PO SCH (10:13)
[2021-01-11] MEDS: amLODIPine BESYLATE 5 MG TABLET (FP) PO SCH (10:13)
[2021-01-11] MEDS: hydrOXYzine PAMOATE 25 MG CAPSULE (FP) PO PRN ×3 (10:14→21:16)
[2021-01-11] MEDS: THIAMINE HCL 100 MG TABLET (FP) PO SCH (21:16)
[2021-01-11] MEDS: QUEtiapine FUMARATE 100 MG TABLET (FP) PO SCH (21:16)
[2021-01-12] MEDS: NICOTINE 10 MG CARTRIDGE (INHALER) IH PRN ×2 (08:55→17:33)
[2021-01-12] MEDS: PRENATAL VITAMINS W/ FOLIC ACID TABLET (FP) PO SCH (09:42)
[2021-01-12] MEDS: hydrOXYzine PAMOATE 25 MG CAPSULE (FP) PO PRN ×2 (09:42→16:06)
[2021-01-12] MEDS: amLODIPine BESYLATE 5 MG TABLET (FP) PO SCH (10:30)
[2021-01-12] MEDS: IBUPROFEN 400 MG TABLET (FP) PO PRN (11:04)
[2021-01-12] MEDS: THIAMINE HCL 100 MG TABLET (FP) PO SCH (21:02)
[2021-01-12] MEDS: QUEtiapine FUMARATE 100 MG TABLET (FP) PO SCH (21:02)
[2021-01-13] MEDS: hydrOXYzine PAMOATE 25 MG CAPSULE (FP) PO PRN ×3 (09:14→21:06)
[2021-01-13] MEDS: NICOTINE 10 MG CARTRIDGE (INHALER) IH PRN ×2 (09:14→21:30)
[2021-01-13] MEDS: amLODIPine BESYLATE 5 MG TABLET (FP) PO SCH (09:15)
[2021-01-13] MEDS: PRENATAL VITAMINS W/ FOLIC ACID TABLET (FP) PO SCH (09:15)
[2021-01-13] MEDS: ACETAMINOPHEN 325 MG TABLET (FP) PO PRN (19:49)
[2021-01-13] MEDS: QUEtiapine FUMARATE 100 MG TABLET (FP) PO SCH (21:06)
[2021-01-13] MEDS: THIAMINE HCL 100 MG TABLET (FP) PO SCH (21:06)
[2021-01-14] MEDS: ACETAMINOPHEN 325 MG TABLET (FP) PO PRN (07:52)
[2021-01-14] MEDS: PRENATAL VITAMINS W/ FOLIC ACID TABLET (FP) PO SCH (09:48)
[2021-01-14] MEDS: amLODIPine BESYLATE 5 MG TABLET (FP) PO SCH (09:48)
[2021-01-14] MEDS: NICOTINE 10 MG CARTRIDGE (INHALER) IH PRN ×2 (09:49→16:01)
[2021-01-14] MEDS: hydrOXYzine PAMOATE 25 MG CAPSULE (FP) PO PRN ×3 (09:49→21:02)
[2021-01-14] MEDS: QUEtiapine FUMARATE 100 MG TABLET (FP) PO SCH (21:02)
[2021-01-14] MEDS: THIAMINE HCL 100 MG TABLET (FP) PO SCH (21:02)
[2021-01-15] MEDS: hydrOXYzine PAMOATE 25 MG CAPSULE (FP) PO PRN ×3 (09:32→21:17)
[2021-01-15] MEDS: NICOTINE 10 MG CARTRIDGE (INHALER) IH PRN ×2 (09:32→21:59)
[2021-01-15] MEDS: amLODIPine BESYLATE 5 MG TABLET (FP) PO SCH (09:32)
[2021-01-15] MEDS: PRENATAL VITAMINS W/ FOLIC ACID TABLET (FP) PO SCH (09:32)
[2021-01-15] MEDS ORDERED: PT OWN MED DRAWER 7, Y5N ONE (15:39)
[2021-01-15] MEDS: THIAMINE HCL 100 MG TABLET (FP) PO SCH (21:16)
[2021-01-15] MEDS: QUEtiapine FUMARATE 100 MG TABLET (FP) PO SCH (21:16)
[2021-01-16] MEDS: hydrOXYzine PAMOATE 25 MG CAPSULE (FP) PO PRN ×2 (06:20→21:07)
[2021-01-16] MEDS: NICOTINE 10 MG CARTRIDGE (INHALER) IH PRN ×2 (08:05→18:27)
[2021-01-16] MEDS: amLODIPine BESYLATE 5 MG TABLET (FP) PO SCH (10:11)
[2021-01-16] MEDS: PRENATAL VITAMINS W/ FOLIC ACID TABLET (FP) PO SCH (10:11)
[2021-01-16 10:16] VITALS: TEMP 97.3
[2021-01-16] MEDS: QUEtiapine FUMARATE 100 MG TABLET (FP) PO SCH (21:07)
[2021-01-16] MEDS: THIAMINE HCL 100 MG TABLET (FP) PO SCH (21:07)
[2021-01-16] MEDS ORDERED: BENZTROPINE MESYLATE 1 MG TABLET PO SCH (22:00)
[2021-01-17] MEDS: hydrOXYzine PAMOATE 25 MG CAPSULE (FP) PO PRN (06:32)
[2021-01-17] MEDS: PRENATAL VITAMINS W/ FOLIC ACID TABLET (FP) PO SCH (09:54)
[2021-01-17] MEDS: amLODIPine BESYLATE 5 MG TABLET (FP) PO SCH (09:55)
[2021-01-17 10:02] VITALS: BP 138/79; PULSE 100
== END 2021-01-17 11:19 | disposition home or self-care (01) | DRG 772 ==
LOC: YASAS 12:04 → Y3E 12:05
PROVIDERS: ADMIT Allergy & Immunology; ATTEND Allergy & Immunology
PROC: HZ42ZZZ Group Counseling for Substance Abuse Treatment, Cognitive-Behavioral (ICD-10-PCS; principal; 2021-01-05)
DX: F10.20 Alcohol dependence, uncomplicated (principal); F14.20 Cocaine dependence, uncomplicated; F12.20 Cannabis dependence, uncomplicated; F17.210 Nicotine dependence, cigarettes, uncomplicated; F31.9 Bipolar disorder, unspecified; I10 Essential (primary) hypertension; R42 Dizziness and giddiness; R06.02 Shortness of breath; Z56.0 Unemployment, unspecified; Z59.00 Homelessness unspecified; Z91.011 Allergy to milk products
CPT/HCPCS: C9803; U0003; U0005

== ENCOUNTER 2022-03-27 10:50 | Inpatient (IN) | payer OTHER ==
[2022-03-27 11:04] VITALS: BMI 27.1
[2022-03-27] MEDS ORDERED: ACETAMINOPHEN 325 MG TABLET (FP) PO PRN ×2 (11:50)
[2022-03-27] MEDS ORDERED: DICYCLOMINE HCL 10 MG CAPSULE PO PRN (11:50)
[2022-03-27] MEDS ORDERED: IBUPROFEN 400 MG TABLET (FP) PO PRN (11:50)
[2022-03-27] MEDS ORDERED: POLYETHYLENE GLYCOL (HEALTHYLAX) 3350 17 GM PACKET PO PRN (11:50)
[2022-03-27] MEDS ORDERED: BISMUTH SUBSALICYLATE 524 MG/30 ML PO PRN (11:50)
[2022-03-27] MEDS ORDERED: BENZOCAINE/MENTHOL (CHLORASEPTIC ) LOZENGE MM PRN (11:50)
[2022-03-27] MEDS ORDERED: ONDANSETRON *ODT* 4 MG TABLET SL PRN (11:50)
[2022-03-27] MEDS ORDERED: MAG HYDROX/AL HYDROX/SIMETH 30 ML UNIT-DOSE CUP PO PRN (11:50)
[2022-03-27] MEDS ORDERED: IBUPROFEN 600 MG TABLET (FP) PO PRN (11:50)
[2022-03-27] MEDS ORDERED: MAGNESIUM HYDROX 2400MG/30ML ORAL SUSPENSION 30 ML CUP PO PRN (11:50)
[2022-03-27] MEDS ORDERED: NALOXONE HCL (KLOXXADO) 8 MG SPRAY NS PRN (11:50)
[2022-03-27] MEDS ORDERED: LOPERAMIDE HCL 2 MG CAPSULE PO PRN (11:50)
[2022-03-27] MEDS: hydrOXYzine PAMOATE 25 MG CAPSULE (FP) PO PRN ×2 (13:17→17:30)
[2022-03-27 14:54] LABS: HEMATOCRIT 37.8 % (35.4-49); HEMOGLOBIN 12.5 GM/dL (11.7-16.9); MCH 28.7 pg (25.7-33.7); MCHC 33.1 g/dl (32.0-35.9); MEAN CELL VOLUME 86.9 fl (80-96); MEAN PLT VOLUME 8.1 fl (7.5-11.1); PLATELET COUNT 312 10^3/uL (134-434); RBC 4.34 M/mm3 (4.00-5.60); RDW 11.9 % (11.9-15.9); WHITE BLOOD COUNT 4.3 K/mm3 (4.0-10.0)
[2022-03-27 15:16] LABS: ALBUMIN 4.2 g/dl (3.4-5.0); BLOOD UREA NITROGEN 34.7 mg/dL (7-18); CALCIUM 9.2 mg/dL (8.5-10.1)
[2022-03-27 15:19] LABS: CREATININE 1.6 mg/dL (0.55-1.3)
[2022-03-27 15:21] LABS: BILIRUBIN,TOTAL 0.9 mg/dL (0.2-1); TOT PROT 8.1 g/dl (6.4-8.2)
[2022-03-27] MEDS: METHOCARBAMOL 500 MG TABLET PO PRN (17:30)
[2022-03-27] MEDS ORDERED: traZODone HCL 50 MG TABLET (FP) PO ONE ×2 (19:02→22:00)
[2022-03-27] MEDS: MELATONIN 5 MG TABLETS PO SCH (22:30)
[2022-03-27] MEDS: THIAMINE HCL 100 MG TABLET (FP) PO SCH (22:30)
[2022-03-28] MEDS ORDERED: PATIENT'S OWN MEDICATION (NON-FORMULARY) (Lisinopril/Hydrochlorothiazide [Lisinopril-Hctz PO SCH (10:00)
[2022-03-28] MEDS: HYDROCHLOROTHIAZIDE 12.5 MG CAPSULE (FP) PO SCH (10:21)
[2022-03-28] MEDS: diazePAM 5 MG TABLET PO SCH ×3 (10:21→22:10)
[2022-03-28] MEDS: PRENATAL VITAMINS W/ FOLIC ACID TABLET (FP) PO SCH (10:22)
[2022-03-28] MEDS: LISINOPRIL 20 MG TABLET PO SCH (10:22)
[2022-03-28] MEDS: NICOTINE 7 MG/24 HOURS TOPICAL PATCH TD SCH (10:22)
[2022-03-28] MEDS ORDERED: NICOTINE 7 MG/24 HOURS TOPICAL PATCH TD SCH (12:30)
[2022-03-28] MEDS ORDERED: PRENATAL VITAMINS W/ FOLIC ACID TABLET (FP) PO SCH (12:45)
[2022-03-28] MEDS: GABAPENTIN 100 MG CAPSULE PO SCH ×2 (14:01→22:05)
[2022-03-28] MEDS: NICOTINE 10 MG CARTRIDGE (INHALER) IH PRN (14:16)
[2022-03-28] MEDS: diazePAM 5 MG TABLET PO PRN (15:45)
[2022-03-28] MEDS: hydrOXYzine PAMOATE 25 MG CAPSULE (FP) PO PRN (18:00)
[2022-03-28] MEDS: METHOCARBAMOL 500 MG TABLET PO PRN (18:00)
[2022-03-28] MEDS ORDERED: traZODone HCL 100 MG TABLET (FP) PO SCH (22:00)
[2022-03-28] MEDS: MELATONIN 5 MG TABLETS PO SCH (22:07)
[2022-03-28] MEDS: THIAMINE HCL 100 MG TABLET (FP) PO SCH (22:09)
[2022-03-28] MEDS: ATORVASTATIN CA 10 MG TABLET (FP) PO SCH (22:09)
[2022-03-29] MEDS: GABAPENTIN 100 MG CAPSULE PO SCH ×3 (05:27→21:00)
[2022-03-29] MEDS: diazePAM 5 MG TABLET PO SCH ×4 (05:28→22:02)
[2022-03-29] MEDS: HYDROCHLOROTHIAZIDE 12.5 MG CAPSULE (FP) PO SCH (10:04)
[2022-03-29] MEDS: LISINOPRIL 20 MG TABLET PO SCH (10:04)
[2022-03-29] MEDS: PRENATAL VITAMINS W/ FOLIC ACID TABLET (FP) PO SCH (10:05)
[2022-03-29] MEDS: NICOTINE 7 MG/24 HOURS TOPICAL PATCH TD SCH (10:06)
[2022-03-29] MEDS ORDERED: VITAMINS A AND D TOPICAL OINTMENT 60 GM TUBE TP PRN (13:02)
[2022-03-29] MEDS: diazePAM 5 MG TABLET PO PRN (14:19)
[2022-03-29] MEDS: hydrOXYzine PAMOATE 25 MG CAPSULE (FP) PO PRN (14:19)
[2022-03-29] MEDS: NICOTINE 10 MG CARTRIDGE (INHALER) IH PRN (21:46)
[2022-03-29] MEDS: MELATONIN 5 MG TABLETS PO SCH (21:51)
[2022-03-29] MEDS: traZODone HCL 50 MG TABLET (FP) PO SCH (21:51)
[2022-03-29] MEDS: THIAMINE HCL 100 MG TABLET (FP) PO SCH (21:53)
[2022-03-29] MEDS: ATORVASTATIN CA 10 MG TABLET (FP) PO SCH (21:53)
[2022-03-30] MEDS: GABAPENTIN 100 MG CAPSULE PO SCH ×3 (05:24→22:15)
[2022-03-30] MEDS: diazePAM 5 MG TABLET PO SCH ×3 (05:25→22:18)
[2022-03-30] MEDS: diazePAM 5 MG TABLET PO PRN ×2 (09:13→17:36)
[2022-03-30] MEDS: NICOTINE 7 MG/24 HOURS TOPICAL PATCH TD SCH (09:13)
[2022-03-30] MEDS: PRENATAL VITAMINS W/ FOLIC ACID TABLET (FP) PO SCH (09:13)
[2022-03-30] MEDS: hydrOXYzine PAMOATE 25 MG CAPSULE (FP) PO PRN ×2 (09:13→17:35)
[2022-03-30] MEDS: HYDROCHLOROTHIAZIDE 12.5 MG CAPSULE (FP) PO SCH (09:13)
[2022-03-30] MEDS: LISINOPRIL 20 MG TABLET PO SCH (09:13)
[2022-03-30 10:21] LABS: PH,URINE 5.5 (5.0-8.0); URINE APPEARANCE CLOUDY; URINE BILIRUBIN NEGATIVE (NEGATIVE); URINE COLOR YELLOW; URINE GLUCOSE (UA) NEGATIVE (NEGATIVE); URINE KETONE NEGATIVE (NEGATIVE); URINE LEUK ESTERASE NEGATIVE (NEGATIVE); URINE NITRITE NEGATIVE (NEGATIVE); URINE PROTEIN NEGATIVE (NEGATIVE); URINE UROBILINOGEN 0.2 mg/dL (0.2-1.0)
[2022-03-30] MEDS: NICOTINE 10 MG CARTRIDGE (INHALER) IH PRN ×3 (15:00→22:42)
[2022-03-30] MEDS: traZODone HCL 50 MG TABLET (FP) PO SCH (22:15)
[2022-03-30] MEDS: ATORVASTATIN CA 10 MG TABLET (FP) PO SCH (22:15)
[2022-03-30] MEDS: THIAMINE HCL 100 MG TABLET (FP) PO SCH (22:16)
[2022-03-30] MEDS: MELATONIN 5 MG TABLETS PO SCH (22:17)
[2022-03-31] MEDS: GABAPENTIN 100 MG CAPSULE PO SCH ×3 (05:12→21:14)
[2022-03-31] MEDS: diazePAM 5 MG TABLET PO SCH ×2 (05:13→18:02)
[2022-03-31] MEDS: NICOTINE 10 MG CARTRIDGE (INHALER) IH PRN ×3 (06:49→17:24)
[2022-03-31] MEDS: NICOTINE 7 MG/24 HOURS TOPICAL PATCH TD SCH (09:19)
[2022-03-31] MEDS: LISINOPRIL 20 MG TABLET PO SCH (09:19)
[2022-03-31] MEDS: HYDROCHLOROTHIAZIDE 12.5 MG CAPSULE (FP) PO SCH (09:19)
[2022-03-31] MEDS: diazePAM 5 MG TABLET PO PRN (09:19)
[2022-03-31] MEDS: PRENATAL VITAMINS W/ FOLIC ACID TABLET (FP) PO SCH (09:20)
[2022-03-31 09:50] VITALS: RESP 18
[2022-03-31] MEDS: hydrOXYzine PAMOATE 25 MG CAPSULE (FP) PO PRN ×2 (10:11→21:14)
[2022-03-31] MEDS: MELATONIN 5 MG TABLETS PO SCH (21:13)
[2022-03-31] MEDS: traZODone HCL 50 MG TABLET (FP) PO SCH (21:13)
[2022-03-31] MEDS: THIAMINE HCL 100 MG TABLET (FP) PO SCH (21:13)
[2022-03-31] MEDS: ATORVASTATIN CA 10 MG TABLET (FP) PO SCH (21:14)
[2022-03-31] MEDS: METHOCARBAMOL 500 MG TABLET PO PRN (21:14)
[2022-04-01] MEDS ORDERED: diazePAM 5 MG TABLET PO ONE (06:00)
[2022-04-01] MEDS: GABAPENTIN 100 MG CAPSULE PO SCH (06:09)
[2022-04-01 07:41] VITALS: TEMP 97.3
[2022-04-01] MEDS: NICOTINE 10 MG CARTRIDGE (INHALER) IH PRN ×2 (09:17→12:28)
[2022-04-01] MEDS: HYDROCHLOROTHIAZIDE 12.5 MG CAPSULE (FP) PO SCH (10:08)
[2022-04-01] MEDS: LISINOPRIL 20 MG TABLET PO SCH (10:08)
[2022-04-01] MEDS: PRENATAL VITAMINS W/ FOLIC ACID TABLET (FP) PO SCH (10:08)
[2022-04-01] MEDS: NICOTINE 7 MG/24 HOURS TOPICAL PATCH TD SCH (10:08)
[2022-04-01] MEDS: hydrOXYzine PAMOATE 25 MG CAPSULE (FP) PO PRN (10:42)
[2022-04-01 11:02] VITALS: BP 146/80; PULSE 100
[2022-04-01 13:11] LABS: BLOOD UREA NITROGEN 15.1 mg/dL (7-18)
[2022-04-01 13:13] LABS: CALCIUM 9.1 mg/dL (8.5-10.1)
== END 2022-04-01 13:28 | disposition home or self-care (01) | DRG 774 ==
LOC: YASAS 10:50 → Y3N 12:25
PROVIDERS: ADMIT Allergy & Immunology; ATTEND Surgery
PROC: HZ2ZZZZ Detoxification Services for Substance Abuse Treatment (ICD-10-PCS; principal; 2022-03-27)
DX: F10.230 Alcohol dependence with withdrawal, uncomplicated (principal); F14.20 Cocaine dependence, uncomplicated; F17.210 Nicotine dependence, cigarettes, uncomplicated; F31.9 Bipolar disorder, unspecified; F41.9 Anxiety disorder, unspecified; E78.2 Mixed hyperlipidemia; I10 Essential (primary) hypertension; N17.9 Acute kidney failure, unspecified; E87.1 Hypo-osmolality and hyponatremia; N18.9 Chronic kidney disease, unspecified; R73.9 Hyperglycemia, unspecified
CPT/HCPCS: 36415; 80048; 80053; 81003; 83036; 85027; 86780; C9803-CS; U0003; U0005

== ENCOUNTER 2022-10-15 13:04 | Inpatient (IN) | payer OTHER ==
[2022-10-15 13:54] VITALS: BMI 27.6
[2022-10-15] MEDS ORDERED: ACETAMINOPHEN 325 MG TABLET (FP) PO PRN (14:18)
[2022-10-15] MEDS ORDERED: METHOCARBAMOL 500 MG TABLET PO PRN (14:18)
[2022-10-15] MEDS ORDERED: BENZONATATE 200 MG CAPSULE PO PRN (14:18)
[2022-10-15] MEDS ORDERED: DICYCLOMINE HCL 10 MG CAPSULE PO PRN (14:18)
[2022-10-15] MEDS ORDERED: POLYETHYLENE GLYCOL (HEALTHYLAX) 3350 17 GM PACKET PO PRN (14:18)
[2022-10-15] MEDS ORDERED: guaiFENesin 600 MG TABLET.ER (FP) PO PRN (14:18)
[2022-10-15] MEDS ORDERED: NALOXONE HCL 0.4 MG/ML VIAL IM PRN (14:18)
[2022-10-15] MEDS ORDERED: BISMUTH SUBSALICYLATE 262 MG/15 ML BTL PO PRN (14:18)
[2022-10-15] MEDS ORDERED: MAG HYDROX/AL HYDROX/SIMETH 30 ML UNIT-DOSE CUP PO PRN (14:18)
[2022-10-15] MEDS ORDERED: hydrOXYzine PAMOATE 25 MG CAPSULE (FP) PO PRN (14:18)
[2022-10-15] MEDS ORDERED: ONDANSETRON *ODT* 4 MG TABLET SL PRN (14:18)
[2022-10-15] MEDS ORDERED: BENZOCAINE/MENTHOL (CHLORASEPTIC ) LOZENGE MM PRN (14:18)
[2022-10-15] MEDS ORDERED: LOPERAMIDE HCL 2 MG CAPSULE PO PRN (14:18)
[2022-10-15] MEDS ORDERED: MAGNESIUM HYDROX 2400MG/30ML ORAL SUSPENSION 30 ML CUP PO PRN (14:18)
[2022-10-15] MEDS ORDERED: IBUPROFEN 600 MG TABLET (FP) PO PRN (14:18)
[2022-10-15] MEDS ORDERED: chlordiazePOXIDE HCL 25 MG CAPSULE PO PRN (14:18)
[2022-10-15] MEDS ORDERED: NALOXONE HCL (KLOXXADO) 8 MG SPRAY NS PRN (14:18)
[2022-10-15] MEDS ORDERED: IBUPROFEN 400 MG TABLET (FP) PO PRN (14:18)
[2022-10-15] MEDS: PRENATAL VITAMINS W/ FOLIC ACID TABLET (FP) PO SCH (15:57)
[2022-10-15] MEDS: chlordiazePOXIDE HCL 25 MG CAPSULE PO SCH ×2 (16:37→22:09)
[2022-10-15] MEDS: MELATONIN 5 MG TABLETS PO SCH (22:06)
[2022-10-15] MEDS: ATORVASTATIN CA 10 MG TABLET (FP) PO SCH (22:07)
[2022-10-15] MEDS: GABAPENTIN 300 MG CAPSULE PO SCH (22:07)
[2022-10-15] MEDS: THIAMINE HCL 100 MG TABLET (FP) PO SCH (22:08)
[2022-10-16] MEDS: chlordiazePOXIDE HCL 25 MG CAPSULE PO SCH ×4 (05:34→22:13)
[2022-10-16] MEDS ORDERED: PATIENT'S OWN MEDICATION (NON-FORMULARY) (Lisinopril/Hydrochlorothiazide [Lisinopril-Hctz PO SCH (10:00)
[2022-10-16] MEDS: PRENATAL VITAMINS W/ FOLIC ACID TABLET (FP) PO SCH (10:09)
[2022-10-16] MEDS: LISINOPRIL 20 MG TABLET PO SCH (10:09)
[2022-10-16] MEDS: HYDROCHLOROTHIAZIDE 12.5 MG CAPSULE (FP) PO SCH (10:09)
[2022-10-16] MEDS: GABAPENTIN 300 MG CAPSULE PO SCH ×2 (10:09→22:13)
[2022-10-16] MEDS ORDERED: traZODone HCL 50 MG TABLET (FP) PO SCH (22:00)
[2022-10-16] MEDS: ATORVASTATIN CA 10 MG TABLET (FP) PO SCH (22:13)
[2022-10-16] MEDS: MELATONIN 5 MG TABLETS PO SCH (22:13)
[2022-10-16] MEDS: THIAMINE HCL 100 MG TABLET (FP) PO SCH (22:14)
[2022-10-17] MEDS: chlordiazePOXIDE HCL 25 MG CAPSULE PO SCH ×2 (06:00→09:59)
[2022-10-17 06:27] VITALS: RESP 18
[2022-10-17 08:45] VITALS: BP 123/71; PULSE 88; TEMP 97.8
[2022-10-17] MEDS: HYDROCHLOROTHIAZIDE 12.5 MG CAPSULE (FP) PO SCH (09:58)
[2022-10-17] MEDS: PRENATAL VITAMINS W/ FOLIC ACID TABLET (FP) PO SCH (09:59)
[2022-10-17] MEDS: GABAPENTIN 300 MG CAPSULE PO SCH (09:59)
[2022-10-17] MEDS: LISINOPRIL 20 MG TABLET PO SCH (09:59)
[2022-10-18] MEDS ORDERED: chlordiazePOXIDE HCL 10 MG CAPSULE PO PRN
[2022-10-18] MEDS ORDERED: chlordiazePOXIDE HCL 10 MG CAPSULE PO SCH (05:00)
[2022-10-19] MEDS ORDERED: chlordiazePOXIDE HCL 10 MG CAPSULE PO SCH (05:00)
[2022-10-20] MEDS ORDERED: chlordiazePOXIDE HCL 10 MG CAPSULE PO ONE (05:00)
== END 2022-10-17 09:39 | disposition left against medical advice (07) | DRG 770 ==
LOC: YASAS 13:04 → Y3N 15:15
PROVIDERS: ADMIT Allergy & Immunology; ATTEND Surgery
PROC: HZ2ZZZZ Detoxification Services for Substance Abuse Treatment (ICD-10-PCS; principal; 2022-10-15)
DX: F10.230 Alcohol dependence with withdrawal, uncomplicated (principal); F14.20 Cocaine dependence, uncomplicated; F12.20 Cannabis dependence, uncomplicated; F17.210 Nicotine dependence, cigarettes, uncomplicated; F31.9 Bipolar disorder, unspecified; I10 Essential (primary) hypertension; E78.2 Mixed hyperlipidemia; G47.00 Insomnia, unspecified; Z86.69 Personal history of other diseases of the nervous system and sense organs; Z91.148 Patient's other noncompliance with medication regimen for other reason; Z56.0 Unemployment, unspecified
CPT/HCPCS: 87635; 87811; Q0162

== ENCOUNTER 2023-04-25 09:48 | Inpatient (IN) | payer OTHER ==
[2023-04-25 10:11] VITALS: BMI 27.1
[2023-04-25] MEDS ORDERED: BENZOCAINE/MENTHOL (CHLORASEPTIC ) LOZENGE MM PRN (10:35)
[2023-04-25] MEDS ORDERED: MAG HYDROX/AL HYDROX/SIMETH 30 ML UNIT-DOSE CUP PO PRN (10:35)
[2023-04-25] MEDS ORDERED: DICYCLOMINE HCL 10 MG CAPSULE PO PRN (10:35)
[2023-04-25] MEDS ORDERED: ACETAMINOPHEN 325 MG TABLET (FP) PO PRN (10:35)
[2023-04-25] MEDS ORDERED: ONDANSETRON *ODT* 4 MG TABLET SL PRN (10:35)
[2023-04-25] MEDS ORDERED: LOPERAMIDE HCL 2 MG CAPSULE PO PRN (10:35)
[2023-04-25] MEDS ORDERED: BISMUTH SUBSALICYLATE 262 MG/15 ML BTL PO PRN (10:35)
[2023-04-25] MEDS ORDERED: guaiFENesin 600 MG TABLET.ER (FP) PO PRN (10:35)
[2023-04-25] MEDS ORDERED: NALOXONE HCL 0.4 MG/ML VIAL IM PRN (10:35)
[2023-04-25] MEDS ORDERED: NICOTINE POLACRILEX 2 MG GUM BUC PRN (10:35)
[2023-04-25] MEDS ORDERED: POLYETHYLENE GLYCOL (HEALTHYLAX) 3350 17 GM PACKET PO PRN (10:35)
[2023-04-25] MEDS ORDERED: chlordiazePOXIDE HCL 25 MG CAPSULE PO PRN (10:35)
[2023-04-25] MEDS ORDERED: BENZONATATE 200 MG CAPSULE PO PRN (10:35)
[2023-04-25] MEDS ORDERED: IBUPROFEN 400 MG TABLET (FP) PO PRN (10:35)
[2023-04-25] MEDS ORDERED: NALOXONE HCL (KLOXXADO) 8 MG SPRAY NS PRN (10:35)
[2023-04-25] MEDS ORDERED: chlordiazePOXIDE HCL 25 MG CAPSULE ONE (11:45)
[2023-04-25] MEDS ORDERED: PRENATAL VITAMINS W/ FOLIC ACID TABLET (FP) PO ONE (11:46)
[2023-04-25] MEDS: chlordiazePOXIDE HCL 25 MG CAPSULE PO SCH (11:52)
[2023-04-25] MEDS: PRENATAL VITAMINS W/ FOLIC ACID TABLET (FP) PO SCH (11:52)
[2023-04-25] MEDS: MELATONIN 5 MG TABLETS PO SCH (22:17)
[2023-04-25] MEDS: THIAMINE HCL 100 MG TABLET (FP) PO SCH (22:17)
[2023-04-26] MEDS: hydrOXYzine PAMOATE 25 MG CAPSULE (FP) PO PRN (10:30)
[2023-04-26] MEDS: IBUPROFEN 600 MG TABLET (FP) PO PRN (10:30)
[2023-04-26 13:40] LABS: HEMATOCRIT 36.9 % (35.4-49); HEMOGLOBIN 12.2 GM/dL (11.7-16.9); MCH 29.7 pg (25.7-33.7); MEAN CELL VOLUME 89.8 fl (80-96); MEAN PLT VOLUME 8.4 fl (7.5-11.1); PLATELET COUNT 335 10^3/uL (134-434); RBC 4.11 M/mm3 (4.00-5.60); RDW 13.5 % (11.9-15.9); WHITE BLOOD COUNT 3.7 K/mm3 (4.0-10.0)
[2023-04-26 13:45] LABS: CHLORIDE 107 mmol/L (98-107); SODIUM 138 mmol/L (136-145)
[2023-04-26 13:51] LABS: ANION GAP 6 mmol/L (4-13); BLOOD UREA NITROGEN 13.3 mg/dL (7-18); CO2 25 mmol/L (21-32)
[2023-04-26 13:52] LABS: ALBUMIN 3.6 g/dl (3.4-5.0)
[2023-04-26 13:54] LABS: CREATININE 0.9 mg/dL (0.55-1.3); SGOT/AST 41 U/L (15-37); SGPT/ALT 44 U/L (13-61)
[2023-04-26 13:56] LABS: BILIRUBIN,TOTAL 0.5 mg/dL (0.2-1); TOT PROT 7.1 g/dl (6.4-8.2)
[2023-04-26 13:57] LABS: ALK PHOS 101 U/L (45-117)
[2023-04-26 13:58] LABS: GLUCOSE,RANDOM 119 mg/dL (74-106)
[2023-04-26] MEDS: traZODone HCL 50 MG TABLET (FP) PO PRN (22:11)
[2023-04-27] MEDS: chlordiazePOXIDE HCL 25 MG CAPSULE PO SCH (05:34)
[2023-04-27] MEDS: METHOCARBAMOL 500 MG TABLET PO PRN (10:09)
[2023-04-27] MEDS: LISINOPRIL 20 MG TABLET PO SCH (10:49)
[2023-04-27] MEDS: GABAPENTIN 100 MG CAPSULE PO SCH (14:07)
[2023-04-27] MEDS: ATORVASTATIN CA 10 MG TABLET (FP) PO SCH (22:28)
[2023-04-27] MEDS: traZODone HCL 50 MG TABLET (FP) PO SCH (22:28)
[2023-04-28] MEDS ORDERED: chlordiazePOXIDE HCL 10 MG CAPSULE PO PRN
[2023-04-28] MEDS: chlordiazePOXIDE HCL 10 MG CAPSULE PO SCH (05:56)
[2023-04-28] MEDS: HYDROCHLOROTHIAZIDE 12.5 MG CAPSULE (FP) PO SCH (10:00)
[2023-04-28] MEDS: LISINOPRIL 10 MG TABLET PO SCH (10:00)
[2023-04-28] MEDS: ESCITALOPRAM OXALATE 10 MG TABLET PO SCH (10:01)
[2023-04-28] MEDS: LISINOPRIL 10 MG TABLET PO ONE (13:03)
[2023-04-29] MEDS: chlordiazePOXIDE HCL 10 MG CAPSULE PO SCH (05:51)
[2023-04-29] MEDS: MAGNESIUM HYDROX 2400MG/30ML ORAL SUSPENSION 30 ML CUP PO PRN (06:27)
[2023-04-30] MEDS: chlordiazePOXIDE HCL 10 MG CAPSULE PO ONE (05:36)
[2023-04-30 06:34] VITALS: BP 114/65; PULSE 78; RESP 17; TEMP 97.7
== END 2023-04-30 09:17 | disposition home or self-care (01) | DRG 774 ==
LOC: YASAS 09:48 → Y6N 11:33
PROVIDERS: ADMIT Allergy & Immunology; ATTEND Surgery
PROC: HZ2ZZZZ Detoxification Services for Substance Abuse Treatment (ICD-10-PCS; principal; 2023-04-25)
DX: F10.230 Alcohol dependence with withdrawal, uncomplicated (principal); F14.20 Cocaine dependence, uncomplicated; F12.20 Cannabis dependence, uncomplicated; F17.210 Nicotine dependence, cigarettes, uncomplicated; F19.282 Other psychoactive substance dependence with psychoactive substance-induced sleep disorder; F31.9 Bipolar disorder, unspecified; F41.8 Other specified anxiety disorders; E78.5 Hyperlipidemia, unspecified; I10 Essential (primary) hypertension
CPT/HCPCS: 36415; 80053; 80307; 83036; 85027; 86780; 87635; 93005; 93010

== ENCOUNTER 2023-06-17 12:00 | Inpatient (IN) | payer OTHER ==
[2023-06-17 12:55] VITALS: BMI 24.9
[2023-06-17] MEDS ORDERED: BISMUTH SUBSALICYLATE 524 MG/30 ML PO PRN (13:41)
[2023-06-17] MEDS ORDERED: IBUPROFEN 400 MG TABLET (FP) PO PRN (13:41)
[2023-06-17] MEDS ORDERED: ONDANSETRON *ODT* 4 MG TABLET SL PRN (13:41)
[2023-06-17] MEDS ORDERED: BENZOCAINE/MENTHOL (CHLORASEPTIC ) LOZENGE MM PRN (13:41)
[2023-06-17] MEDS ORDERED: BENZONATATE 200 MG CAPSULE PO PRN (13:41)
[2023-06-17] MEDS ORDERED: IBUPROFEN 600 MG TABLET (FP) PO PRN (13:41)
[2023-06-17] MEDS ORDERED: LOPERAMIDE HCL 2 MG CAPSULE PO PRN (13:41)
[2023-06-17] MEDS ORDERED: hydrOXYzine PAMOATE 25 MG CAPSULE (FP) PO PRN (13:41)
[2023-06-17] MEDS ORDERED: POLYETHYLENE GLYCOL (HEALTHYLAX) 3350 17 GM PACKET PO PRN (13:41)
[2023-06-17] MEDS ORDERED: chlordiazePOXIDE HCL 25 MG CAPSULE PO PRN (13:41)
[2023-06-17] MEDS ORDERED: NALOXONE HCL 0.4 MG/ML VIAL IM PRN (13:41)
[2023-06-17] MEDS ORDERED: NALOXONE HCL (KLOXXADO) 8 MG SPRAY NS PRN (13:41)
[2023-06-17] MEDS ORDERED: MAGNESIUM HYDROX 2400MG/30ML ORAL SUSPENSION 30 ML CUP PO PRN (13:41)
[2023-06-17] MEDS ORDERED: ACETAMINOPHEN 325 MG TABLET (FP) PO PRN (13:41)
[2023-06-17] MEDS ORDERED: DICYCLOMINE HCL 10 MG CAPSULE PO PRN (13:41)
[2023-06-17] MEDS ORDERED: guaiFENesin 600 MG TABLET.ER (FP) PO PRN (13:41)
[2023-06-17] MEDS ORDERED: MAG HYDROX/AL HYDROX/SIMETH 30 ML UNIT-DOSE CUP PO PRN (13:41)
[2023-06-17] MEDS ORDERED: PRENATAL VITAMINS W/ FOLIC ACID TABLET (FP) PO ONE (13:58)
[2023-06-17] MEDS ORDERED: NICOTINE 7 MG/24 HOURS TOPICAL PATCH TD ONE (13:58)
[2023-06-17] MEDS: NICOTINE 7 MG/24 HOURS TOPICAL PATCH TD SCH (14:02)
[2023-06-17] MEDS: PRENATAL VITAMINS W/ FOLIC ACID TABLET (FP) PO SCH (14:02)
[2023-06-17] MEDS: chlordiazePOXIDE HCL 25 MG CAPSULE PO SCH (19:54)
[2023-06-17] MEDS ORDERED: MELATONIN 5 MG TABLETS PO SCH (22:00)
[2023-06-17] MEDS: traZODone HCL 50 MG TABLET (FP) PO SCH (22:52)
[2023-06-17] MEDS: GABAPENTIN 300 MG CAPSULE PO SCH (22:52)
[2023-06-17] MEDS: ATORVASTATIN CA 10 MG TABLET (FP) PO SCH (22:52)
[2023-06-17] MEDS: THIAMINE HCL 100 MG TABLET (FP) PO SCH (22:53)
[2023-06-18] MEDS ORDERED: PATIENT'S OWN MEDICATION (NON-FORMULARY) (Lisinopril/Hydrochlorothiazide [Lisinopril-Hctz PO SCH (10:00)
[2023-06-18] MEDS: HYDROCHLOROTHIAZIDE 12.5 MG CAPSULE (FP) PO SCH (10:13)
[2023-06-18] MEDS: LISINOPRIL 10 MG TABLET PO SCH (10:13)
[2023-06-18 12:05] LABS: CHLORIDE 108 mmol/L (98-107); SODIUM 141 mmol/L (136-145)
[2023-06-18 12:14] LABS: BLOOD UREA NITROGEN 17.1 mg/dL (7-18); GLUCOSE,RANDOM 137 mg/dL (74-106)
[2023-06-18 12:16] LABS: ALBUMIN 3.5 g/dl (3.4-5.0); ANION GAP 9 mmol/L (4-13); CALCIUM 8.8 mg/dL (8.5-10.1); CO2 24 mmol/L (21-32)
[2023-06-18 12:18] LABS: CREATININE 1.1 mg/dL (0.55-1.3); SGOT/AST 18 U/L (15-37)
[2023-06-18 12:19] LABS: BILIRUBIN,TOTAL 0.3 mg/dL (0.2-1); HEMATOCRIT 34.9 % (35.4-49); HEMOGLOBIN 11.8 GM/dL (11.7-16.9); MCH 29.6 pg (25.7-33.7); MCHC 33.8 g/dl (32.0-35.9); MEAN CELL VOLUME 87.7 fl (80-96); MEAN PLT VOLUME 8.3 fl (7.5-11.1); PLATELET COUNT 293 10^3/uL (134-434); RBC 3.98 M/mm3 (4.00-5.60); RDW 12.8 % (11.9-15.9); SGPT/ALT 19 U/L (13-61); TOT PROT 6.8 g/dl (6.4-8.2); WHITE BLOOD COUNT 3.5 K/mm3 (4.0-10.0)
[2023-06-18 12:20] LABS: ALK PHOS 113 U/L (45-117)
[2023-06-18] MEDS: LACTULOSE 20 GM/30 ML UDC (FOR ORAL USE ONLY) PO SCH (22:21)
[2023-06-19] MEDS: chlordiazePOXIDE HCL 25 MG CAPSULE PO SCH (05:06)
[2023-06-19 05:51] VITALS: RESP 16
[2023-06-19] MEDS: CITALOPRAM HYDROBROMIDE 20 MG TABLET PO SCH (10:29)
[2023-06-19] MEDS: METHOCARBAMOL 500 MG TABLET PO PRN (10:29)
[2023-06-19 13:13] VITALS: BP 113/72; PULSE 80; TEMP 97.3
[2023-06-19] MEDS ORDERED: traZODone HCL 50 MG TABLET (FP) PO SCH (20:00)
[2023-06-19] MEDS ORDERED: ROSUVASTATIN CA 10 MG TABLET PO SCH (22:00)
[2023-06-20] MEDS ORDERED: chlordiazePOXIDE HCL 10 MG CAPSULE PO PRN
[2023-06-20] MEDS ORDERED: chlordiazePOXIDE HCL 10 MG CAPSULE PO SCH (05:00)
[2023-06-21] MEDS ORDERED: chlordiazePOXIDE HCL 10 MG CAPSULE PO SCH (05:00)
[2023-06-22] MEDS ORDERED: chlordiazePOXIDE HCL 10 MG CAPSULE PO ONE (05:00)
== END 2023-06-19 14:27 | disposition left against medical advice (07) | DRG 770 ==
LOC: YASAS 12:00 → Y6N 13:43
PROVIDERS: ADMIT Allergy & Immunology; ATTEND Surgery
PROC: HZ2ZZZZ Detoxification Services for Substance Abuse Treatment (ICD-10-PCS; principal; 2023-06-17)
DX: F10.230 Alcohol dependence with withdrawal, uncomplicated (principal); F14.20 Cocaine dependence, uncomplicated; F17.210 Nicotine dependence, cigarettes, uncomplicated; F31.9 Bipolar disorder, unspecified; F19.282 Other psychoactive substance dependence with psychoactive substance-induced sleep disorder; F19.280 Other psychoactive substance dependence with psychoactive substance-induced anxiety disorder; F19.24 Other psychoactive substance dependence with psychoactive substance-induced mood disorder; E72.20 Disorder of urea cycle metabolism, unspecified; E78.5 Hyperlipidemia, unspecified; I10 Essential (primary) hypertension
CPT/HCPCS: 36415; 80053; 80305; 80307; 82140; 85027; 86780; 93005; 93010